=== PATIENT | male | born 1935 | race Native Hawaiian/Other Pacific Islander ===

== ENCOUNTER 2018-10-19 22:48 | Inpatient (IN) | payer MEDICARE ==
[2018-10-19 22:48] VITALS: BMI 26.1
[2018-10-20 00:01] LABS: BASO % 0.4 % (0.0-2.0); EOS % 0.4 % (0.0-4.0); HEMOGLOBIN 14.6 g/dL (12.0-18.0); LYMPH # 1.3 K/uL (1.0-4.3); LYMPH % 24.8 % (20.0-40.0); MEAN CELL VOLUME 93.1 fL (80.0-94.0); MEAN CORPUSCULAR HEMOGLOBIN 32.5 pg (27.0-31.0); MEAN CORPUSCULAR HGB CONC 34.9 g/dL (33.0-37.0); MEAN PLATELET VOLUME 8.5 fL (7.2-11.7); MONO # 0.4 K/uL (0.0-0.8); MONO % 7.6 % (0.0-10.0); NEUT # 3.6 K/uL (1.8-7.0); NEUT % 66.8 % (50.0-75.0); NRBC % 0.1 % (0.0-2.0); RBC 4.49 Mil/uL (4.40-5.90); WHITE BLOOD COUNT 5.3 K/uL (4.8-10.8)
[2018-10-20 00:08] LABS: INR 1.2; PROTHROMBIN TIME 12.7 SECONDS (9.7-12.2)
[2018-10-20 00:14] LABS: BLOOD UREA NITROGEN 42 mg/dL (9-20); CALCIUM 9.1 mg/dl (8.6-10.4); GFR NON-AFRICAN AMERICAN 36
[2018-10-20 00:15] LABS: ALB/GLOB RATIO 1.4 (1.0-2.1); ALBUMIN 4.5 g/dL (3.5-5.0); ALT/SGPT 96 U/L (21-72); AST/SGOT 141 U/L (17-59)
--- NOTE | 2018-10-20 00:16 | C.PDOC ---
History Of Present Illness 82 year old male is brought to the ED by family for evaluation of seizure-like activity noted prior to arrival. As per family, patient was sitting in a chair, stood up and became unresponsive, and fell back into the chair. Patient appeared to have a seizure-like episode that lasted a couple seconds before self - resolving. Patient currently offers no complaints. As per family, patient was recently discharged from another hospital with diagnosis of dizziness and an ear infection. He denies any symptoms prior to the episode, tongue bite, or urinary/bowel incontinence at this time. Time Seen by Provider: 10/19/18 23:10 Chief Complaint (Nursing): Seizure History Per: Patient, Family History/Exam Limitations: no limitations Recent Seizure Activity Began: Just Before Arrival Number Of Seizures: One Length Of Seizures (Duration): Seconds Past Medical History Reviewed: Historical Data, Nursing Documentation, Vital Signs Vital Signs: Last Vital Signs Temp 98.2 F 10/19/18 22:55 Pulse 75 10/19/18 23:34 Resp 16 10/19/18 23:34 BP 159/72 H 10/19/18 23:34 Pulse Ox 99 10/19/18 23:34 - Medical History PMH: Colonic Polyps, HTN, Hypothyroidism (H/O PAPILLARY CANCER) Denies: Fractures Surgical History: Endoscopy Family History: States: Unknown Family Hx - Social History Hx Alcohol Use: No Hx Substance Use: No - Immunization History Hx Tetanus Toxoid Vaccination: No Hx Influenza Vaccination: Yes Hx Pneumococcal Vaccination: Yes Review Of Systems Constitutional: Negative for: Fever, Chills ENT: Negative for: Other (tongue bite ) Cardiovascular: Negative for: Chest Pain, Palpitations Respiratory: Negative for: Cough, Shortness of Breath Genitourinary: Negative for: Incontinence Neurological: Positive for: Seizures Physical Exam - Physical Exam Appears: Non-toxic, No Acute Distress Skin: Normal Color, Warm, Dry Head: Atraumatic, Normacephalic Eye(s): bilateral: Normal Inspection Oral Mucosa: Moist Tongue: Normal Appearing, No Bite Neck: Normal ROM, Supple Chest: Symmetrical, No Deformity, No Tenderness Cardiovascular: Rhythm Regular, No Murmur Respiratory: Normal Breath Sounds, No Rales, No Rhonchi, No Wheezing Gastrointestinal/Abdominal: Soft, No Tenderness, No Guarding, No Rebound Extremity: Normal ROM, Capillary Refill (less than 2 seconds ) Neurological/Psych: Oriented x3, Normal Speech, Normal Cognition ED Course And Treatment - Laboratory Results Result Diagrams: 10/19/18 23:56 10/19/18 23:56 Lab Results: PT 12.7 SECONDS (9.7-12.2) H 10/19/18 23:56 INR 1.2 10/19/18 23:56 APTT 40 SECONDS (21-34) H 10/19/18 23:56 Total Bilirubin 1.3 mg/dL (0.2-1.3) 10/19/18 23:56 AST 141 U/L (17-59) H 10/19/18 23:56 ALT 96 U/L (21-72) H 10/19/18 23:56 Alkaline Phosphatase 45 U/L (38-126) 10/19/18 23:56 Total Protein 7.6 g/dL (6.3-8.3) 10/19/18 23:56 Albumin 4.5 g/dL (3.5-5.0) 10/19/18 23:56 Globulin 3.2 gm/dL (2.2-3.9) 10/19/18 23:56 Albumin/Globulin Ratio 1.4 (1.0-2.1) 10/19/18 23:56 ECG: Interpreted By Me, Viewed By Me ECG Rhythm: Sinus Rhythm Interpretation Of ECG: Normal Sinus Rhythm at rate 71bpm. Normal axis, LVH. Rate From EC O2 Sat by Pulse Oximetry: 99 (on RA) Pulse Ox Interpretation: Normal - CT Scan/US CT Head Other Rad Studies (CT/US): Read By Radiologist, Radiology Report Reviewed CT/US Interpretation: EXAM: CT Head without Intravenous Contrast. CLINICAL HISTORY: Dizziness, and seizure today. TECHNIQUE: Axial computed tomography images of the head/brain without intravenous contrast. 0.00 mGy-cm. CONTRAST: Without. COMPARISON: None provided. FINDINGS: BRAIN. There is mild periventricular deep and subcortical white matter hypodensity bilaterally compatible with mild microvascular ischemic disease. No evidence for acute intracranial hemorrhage. No midline shift or mass effect is evident. VENTRICLES: There is mild prominence of ventricles and sulci compatible with mild atrophy. ORBITS: The orbits are unremarkable. SINUSES AND MASTOIDS: The paranasal sinuses and mastoid air cells are clear. BONES: No fracture. MISCELLANEOUS: No CT evidence for acute territorial infarction is identified. IMPRESSION: 1. There is mild prominence of ventricles and sulci compatible with mild atrophy. 2. There is mild periventricular deep and subcortical white matter hypodensity bilaterally compatible with mild microvascular ischemic disease. 3. No CT evidence for acute intracranial abnormality. Medical Decision Making Medical Decision Making: Progress: Bloodwork, urinalysis, CXR, CT Head, and EKG ordered and reviewed. Spoke to Dr. Fagan. Workup reviewed. Patient to be admitted to his service. Disposition - Disposition Disposition: HOSPITALIZED Disposition Time: 00:45 Condition: STABLE Forms: Flitto (Uzbek) - Clinical Impression Clinical Impression: Syncope - Scribe Statement The provider has reviewed the documentation as recorded by the Scribe (Amna Donald) Provider Attestation: All medical record entries made by the Scribe were at my direction and personally dictated by me. I have reviewed the chart and agree that the record accurately reflects my personal performance of the history, physical exam, medical decision making, and the department course for this patient. I have also personally directed, reviewed, and agree with the discharge instructions and disposition.
[2018-10-20 00:52] LABS: URINE BACTERIA RARE (<OCC); URINE BILIRUBIN NEGATIVE (NEGATIVE); URINE BLOOD NEGATIVE (NEGATIVE); URINE CLARITY Clear (Clear); URINE COLOR Yellow (YELLOW); URINE GLUCOSE (UA) 1+ mg/dL (Normal); URINE LEUKOCYTE ESTERASE NEG Leu/uL (Negative); URINE PROTEIN 2+ mg/dL (NEGATIVE); URINE UROBILINOGEN NORMAL mg/dL (0.2-1.0)
[2018-10-20] MEDS ORDERED: Dextrose 50% SYRINGE Inj (50 ml) IV PRN (01:38)
[2018-10-20] MEDS ORDERED: Glucagon Recombinant 1 mg Inj IM PRN (01:38)
[2018-10-20] MEDS: Levothyroxine 150 MCG TAB PO SCH (06:41)
[2018-10-20] MEDS: (Novolog) Insulin Aspart, Recombinant 100 u/ml 10 ml vial SC SCH ×5 (08:32→21:11)
[2018-10-20 08:34] VITALS: RESP 20
[2018-10-20] MEDS ORDERED: MAGNESIUM OXIDE 200 MG PO SCH (10:00)
[2018-10-20] MEDS ORDERED: Pantoprazole 40 mg EC Tab PO SCH (10:00)
--- NOTE | 2018-10-20 10:17 | RAD ---
Date of service: 10/19/2018 HISTORY: syncope COMPARISON: Chest radiographs 01/20/2014. FINDINGS: LUNGS: Diminished inspiratory effort. No acute infiltrate bilaterally. PLEURA: No significant pleural effusion identified, no pneumothorax apparent. CARDIOVASCULAR: Calcific atherosclerotic changes are seen related to the thoracic aorta. Normal cardiac size. No pulmonary vascular congestion. OSSEOUS STRUCTURES: No significant abnormalities. VISUALIZED UPPER ABDOMEN: Normal. OTHER FINDINGS: None. IMPRESSION: No acute infiltrate bilaterally. Diminished inspiratory effort. No pulmonary vascular congestion evident.
[2018-10-20 10:28] LABS: ALB/GLOB RATIO 1.4 (1.0-2.1); ALBUMIN 3.9 g/dL (3.5-5.0); ALT/SGPT 100 U/L (21-72); AST/SGOT 88 U/L (17-59); BLOOD UREA NITROGEN 38 mg/dL (9-20); CALCIUM 9.4 mg/dl (8.6-10.4); GFR NON-AFRICAN AMERICAN 36
[2018-10-20] MEDS: Enoxaparin 40 mg Syringe SC SCH (10:32)
[2018-10-20 10:59] LABS: T3 1.08 nmol/L (1.49-2.60)
--- NOTE | 2018-10-20 12:24 | CT ---
Date of service: 10/19/2018 PROCEDURE: CT HEAD WITHOUT CONTRAST. HISTORY: syncope COMPARISON: None available. TECHNIQUE: Axial computed tomography images were obtained through the head/brain without intravenous contrast. Radiation dose: Total exam DLP = 1218.5 mGy-cm. This CT exam was performed using one or more of the following dose reduction techniques: Automated exposure control, adjustment of the mA and/or kV according to patient size, and/or use of iterative reconstruction technique. FINDINGS: HEMORRHAGE: No intracranial hemorrhage. BRAIN: The chávez-white matter differentiation is well preserved. There is no mass effect or definitive edema pattern appreciated including the cortex. There is proportional expansion of the ventriculosulcal and cisternal spaces however in a pattern most compatible with diffuse cerebral atrophy. No suspicious extra-axial fluid collection is identified in the midline brain anatomy appears grossly nonfocal as imaged. VENTRICLES: Unremarkable. No hydrocephalus. CALVARIUM: No fracture or destructive bony lesion appreciated throughout the skull base and calvarium. Atherosclerotic cavernous ICA calcifications are identified bilaterally. PARANASAL SINUSES: Unremarkable as visualized. No significant inflammatory changes. MASTOID AIR CELLS: Unremarkable as visualized. No inflammatory changes. OTHER FINDINGS: None. IMPRESSION: Limited age-related neuro degenerative changes without acute intracranial findings appreciable. Follow-up MRI or CT are available if clinically warranted. Concordant preliminary report from [facility], 10/20/2018, 12:21 a.m..
[2018-10-20] MEDS ORDERED: Iodixanol 320 mg/ml 150 ml Bottle IV ONE (13:11)
--- NOTE | 2018-10-20 13:20 | CP.PCM.CON ---
History of Present Illness - History of Present Illness History of Present Illness: CONSULTATION DICTATED WITNESSED SEIZURE LIKE ACTIVITIES WITH LOC EXAM : ASTASIA ABASALIS - THALAMIC DYSFUNCTION COMPLICATED WITH DIABETIC NEUROPATHY NEED ASA/PLAVIX FOR NOW WITH ACI OR ARB WITH STATIN DIABETIC CONTROL OOB WITH PT WILL DO MRI /EEG NO AED NOW OBTAIN MEDICAL RECORDS FROM [facility] Past Patient History - Past Medical History & Family History Past Medical History?: Yes - Past Social History Smoking Status: Former Smoker - CARDIAC Hx Hypertension: Yes - NEUROLOGICAL HX Cerebrovascular Accident: No - RENAL Other/Comment: BORDERLINE KIDNEY DYSFUNCTION - ENDOCRINE/METABOLIC Hx Hypothyroidism: Yes (H/O PAPILLARY CANCER) - HEMATOLOGICAL/ONCOLOGICAL Hx Blood Transfusions: No - MUSCULOSKELETAL/RHEUMATOLOGICAL Hx Fractures: No - GASTROINTESTINAL Hx Gastrointestinal Disorders: Yes Hx Hemorrhoids: Yes Hx Ulcer: Yes - PSYCHIATRIC Hx Substance Use: No - SURGICAL HISTORY Hx Surgeries: Yes Hx Thyroidectomy: Yes (TOTAL) - ANESTHESIA Hx Anesthesia: Yes Hx Anesthesia Reactions: No Hx Malignant Hyperthermia: No Meds Allergies/Adverse Reactions: Allergies Allergy/AdvReac Type Severity Reaction Status Date / Time sitagliptin phosphate Allergy Intermediate RASH Verified 10/19/18 23:03 [From Francisco] MICHELLE Allergy Intermediate RASH Uncoded 10/19/18 23:03 - Medications Medications: Current Medications Amlodipine Besylate (Norvasc) 10 mg PO DAILY [facility] Last Admin: 10/20/18 10:32 Dose: 10 mg Clopidogrel Bisulfate (Plavix) 75 mg PO DAILY [facility] Dextrose (Dextrose 50% Inj) 0 ml IV STAT PRN; Protocol PRN Reason: Hypoglycemia Protocol Dextrose (Glutose 15) 0 gm PO ONCE PRN; Protocol PRN Reason: Hypoglycemia Protocol Docusate Sodium (Colace) 100 mg PO BID PRN PRN Reason: Constipation Enoxaparin Sodium (Lovenox) 40 mg SC DAILY [facility] Last Admin: 10/20/18 10:32 Dose: 40 mg Famotidine (Pepcid) 20 mg PO DAILY [facility] Fenofibrate (Tricor) 145 mg PO DAILY [facility] Finasteride (Proscar) 5 mg PO DAILY [facility] Last Admin: 10/20/18 12:27 Dose: 5 mg Folic Acid (Folic Acid) 1 mg PO DAILY [facility] Last Admin: 10/20/18 10:32 Dose: 1 mg Glucagon (Glucagen Diagnostic Kit) 0 mg IM STAT PRN; Protocol PRN Reason: Hypoglycemia Protocol Home Med (Silodosin [Rapaflo]) 8 mg PO DAILY [facility] Dextrose (Dextrose 5% In Water 1000 Ml) 1,000 mls @ 0 mls/hr IV .Q0M PRN; Protocol PRN Reason: Hypoglycemia Protocol Insulin Aspart (Novolog) 0 unit SC ACHS [facility]; Protocol Last Admin: 10/20/18 12:26 Dose: 3 units Levothyroxine Sodium (Synthroid) 150 mcg PO DAILY@0630 [facility] Last Admin: 10/20/18 06:41 Dose: 150 mcg Losartan Potassium (Cozaar) 100 mg PO DAILY [facility] Last Admin: 10/20/18 10:32 Dose: 100 mg Magnesium Oxide (Magnesium Oxide) 200 mg PO DAILY [facility] Ondansetron HCl (Zofran Tab) 4 mg PO Q4 [facility] Last Admin: 10/20/18 12:27 Dose: 4 mg Results - Vital Signs Recent Vital Signs: Last Vital Signs Temp 97.9 F 10/20/18 08:33 Pulse 70 10/20/18 08:33 Resp 20 10/20/18 08:33 BP 153/67 H 10/20/18 08:33 Pulse Ox 98 10/20/18 08:33 - Labs Result Diagrams: 10/19/18 23:56 10/20/18 08:00 Labs: Laboratory Results - last 24 hr 10/19/18 10/19/18 10/19/18 22:57 23:56 23:56 WBC 5.3 RBC 4.49 Hgb 14.6 Hct 41.8 MCV 93.1 MCH 32.5 H MCHC 34.9 RDW 13.0 Plt Count 148 MPV 8.5 Neut % (Auto) 66.8 Lymph % (Auto) 24.8 [place] % (Auto) 7.6 Eos % (Auto) 0.4 Baso % (Auto) 0.4 Neut # (Auto) 3.6 Lymph # (Auto) 1.3 [place] # (Auto) 0.4 Eos # (Auto) 0.0 Baso # (Auto) 0.0 PT 12.7 H INR 1.2 APTT 40 H D-Dimer, Quantitative Sodium Potassium Chloride Carbon Dioxide Anion Gap BUN Creatinine Est GFR ( Amer) Est GFR (Non-Af Amer) POC Glucose (mg/dL) 154 H Random Glucose Calcium Phosphorus Magnesium Total Bilirubin AST ALT Alkaline Phosphatase Troponin I Total Protein Albumin Globulin Albumin/Globulin Ratio Total T3 TSH 3rd Generation Prolactin Urine Color Urine Clarity Urine pH Ur Specific [place] Urine Protein Urine Glucose (UA) Urine Ketones Urine Blood Urine Nitrate Urine Bilirubin Urine Urobilinogen Ur Leukocyte Esterase Urine WBC (Auto) Urine RBC (Auto) Urine Bacteria 10/19/18 10/20/18 10/20/18 23:56 00:46 02:10 WBC RBC Hgb Hct MCV MCH MCHC RDW Plt Count MPV Neut % (Auto) Lymph % (Auto) [place] % (Auto) Eos % (Auto) Baso % (Auto) Neut # (Auto) Lymph # (Auto) [place] # (Auto) Eos # (Auto) Baso # (Auto) PT INR APTT D-Dimer, Quantitative Sodium 131 L Potassium 5.4 H Chloride 99 Carbon Dioxide 22 Anion Gap 16 BUN 42 H Creatinine 1.8 H Est GFR ( Amer) 44 Est GFR (Non-Af Amer) 36 POC Glucose (mg/dL) 178 H Random Glucose 153 H Calcium 9.1 Phosphorus 5.1 H Magnesium 2.1 Total Bilirubin 1.3 AST 141 H ALT 96 H Alkaline Phosphatase 45 Troponin I < 0.0120 Total Protein 7.6 Albumin 4.5 Globulin 3.2 Albumin/Globulin Ratio 1.4 Total T3 1.10 L TSH 3rd Generation 0.25 L Prolactin Urine Color Yellow Urine Clarity Clear Urine pH 6.0 Ur Specific [place] 1.013 Urine Protein 2+ H Urine Glucose (UA) 1+ H Urine Ketones Negative Urine Blood Negative Urine Nitrate Negative Urine Bilirubin Negative Urine Urobilinogen Normal Ur Leukocyte Esterase Neg Urine WBC (Auto) 1 Urine RBC (Auto) < 1 Urine Bacteria Rare 10/20/18 10/20/18 10/20/18 06:21 08:00 08:03 WBC RBC Hgb Hct MCV MCH MCHC RDW Plt Count MPV Neut % (Auto) Lymph % (Auto) [place] % (Auto) Eos % (Auto) Baso % (Auto) Neut # (Auto) Lymph # (Auto) [place] # (Auto) Eos # (Auto) Baso # (Auto) PT INR APTT D-Dimer, Quantitative 1980 H Sodium 133 Potassium 3.7 Chloride 100 Carbon Dioxide 25 Anion Gap 12 BUN 38 H Creatinine 1.8 H Est GFR ( Amer) 44 Est GFR (Non-Af Amer) 36 POC Glucose (mg/dL) 205 H Random Glucose 193 H D Calcium 9.4 Phosphorus 4.4 Magnesium 2.1 Total Bilirubin 0.6 AST 88 H D ALT 100 H Alkaline Phosphatase 58 Troponin I < 0.0120 Total Protein 6.7 Albumin 3.9 Globulin 2.8 Albumin/Globulin Ratio 1.4 Total T3 1.08 L TSH 3rd Generation 0.23 L Prolactin Urine Color Urine Clarity Urine pH Ur Specific [place] Urine Protein Urine Glucose (UA) Urine Ketones Urine Blood Urine Nitrate Urine Bilirubin Urine Urobilinogen Ur Leukocyte Esterase Urine WBC (Auto) Urine RBC (Auto) Urine Bacteria 10/20/18 10/20/18 08:03 10:58 WBC RBC Hgb Hct MCV MCH MCHC RDW Plt Count MPV Neut % (Auto) Lymph % (Auto) [place] % (Auto) Eos % (Auto) Baso % (Auto) Neut # (Auto) Lymph # (Auto) [place] # (Auto) Eos # (Auto) Baso # (Auto) PT INR APTT D-Dimer, Quantitative Sodium Potassium Chloride Carbon Dioxide Anion Gap BUN Creatinine Est GFR ( Amer) Est GFR (Non-Af Amer) POC Glucose (mg/dL) 244 H Random Glucose Calcium Phosphorus Magnesium Total Bilirubin AST ALT Alkaline Phosphatase Troponin I Total Protein Albumin Globulin Albumin/Globulin Ratio Total T3 TSH 3rd Generation Prolactin 28.8 H Urine Color Urine Clarity Urine pH Ur Specific [place] Urine Protein Urine Glucose (UA) Urine Ketones Urine Blood Urine Nitrate Urine Bilirubin Urine Urobilinogen Ur Leukocyte Esterase Urine WBC (Auto) Urine RBC (Auto) Urine Bacteria
[2018-10-20 14:43] LABS: FREE T4 2.1 ng/dL (0.78-2.19)
[2018-10-20 15:19] LABS: FOLATE > 20.0 ng/mL
--- NOTE | 2018-10-20 15:24 | CP.PCM.HP ---
History of Present Illness - History of Present Illness History of Present Illness: 82 years old male was witnessed yesterday to pass out at home followed by seizures for a few seconds. Patient regained consciousness spontaneously. He denies any chest pain, any palpitation. He has been complaining of lightheadedness for the past few weeks, was hospitalized at [facility] a few days ago and a head MRI was normal. Patient is known to have an IDDM, a CKD, a hypertension, a hypothyroidism, a glaucoma, a BPH, a COPD. On admission, his serum prolactin level is slight elevated and his D-Dimer was 1,900. Patient denies any chest pain, any calf pain, but complaints of SOB on minimal exertion lately. Present on Admission - Present on Admission Any Indicators Present on Admission: No Review of Systems - Cardiovascular Cardiovascular: Dyspnea on Exertion, Syncope - Respiratory Respiratory: Dyspnea on Exertion - Neurological Neurological: Convulsions, Dizziness, Syncope Past Patient History - Infectious Disease Hx of Infectious Diseases: None - Tetanus Immunizations Tetanus Immunization: Unknown - Past Medical History & Family History Past Medical History?: Yes - Past Social History Smoking Status: Former Smoker Alcohol: None Drugs: Denies Home Situation {Lives}: With Family Domestic Violence: Negative - CARDIAC Hx Heart Murmur: Yes Hx Hypertension: Yes - PULMONARY Hx Chronic Obstructive Pulmonary Disease (COPD): Yes - NEUROLOGICAL HX Cerebrovascular Accident: No Hx Seizures: Yes Hx Syncope: Yes - HEENT Hx Glaucoma: Yes Hx Macular Degeneration: Yes - RENAL Hx Chronic Kidney Disease: Yes Other/Comment: BORDERLINE KIDNEY DYSFUNCTION - ENDOCRINE/METABOLIC Hx Diabetes Mellitus Type 1: Yes Hx Hypothyroidism: Yes (H/O PAPILLARY CANCER) - HEMATOLOGICAL/ONCOLOGICAL Hx Blood Transfusions: No - MUSCULOSKELETAL/RHEUMATOLOGICAL Hx Fractures: No - GASTROINTESTINAL Hx Gastrointestinal Disorders: Yes Hx Hemorrhoids: Yes Hx Ulcer: Yes - PSYCHIATRIC Hx Substance Use: No - SURGICAL HISTORY Hx Surgeries: Yes Hx Thyroidectomy: Yes (TOTAL) - ANESTHESIA Hx Anesthesia: Yes Hx Anesthesia Reactions: No Hx Malignant Hyperthermia: No Meds Allergies/Adverse Reactions: Allergies Allergy/AdvReac Type Severity Reaction Status Date / Time sitagliptin phosphate Allergy Intermediate RASH Verified 10/19/18 23:03 [From Francisco] IMCHELLE Allergy Intermediate RASH Uncoded 10/19/18 23:03 Physical Exam - Constitutional Appears: Well - Head Exam Head Exam: NORMAL INSPECTION - Eye Exam Eye Exam: Normal appearance Pupil Exam: NORMAL ACCOMODATION - ENT Exam ENT Exam: Normal Exam - Neck Exam Neck exam: Positive for: Normal Inspection - Respiratory Exam Respiratory Exam: Clear to Auscultation Bilateral, NORMAL BREATHING PATTERN - Cardiovascular Exam Cardiovascular Exam: REGULAR RHYTHM, Systolic Murmur - GI/Abdominal Exam GI & Abdominal Exam: Normal Bowel Sounds, Soft - Rectal Exam Rectal Exam: Deferred - Exam Exam: NORMAL INSPECTION - Extremities Exam Extremities exam: Positive for: normal inspection - Back Exam Back exam: NORMAL INSPECTION - Neurological Exam Neurological exam: Alert, Normal Gait, Oriented x3 - Psychiatric Exam Psychiatric exam: Anxious - Skin Skin Exam: Dry, Intact, Normal Color, Warm Results - Vital Signs Recent Vital Signs: Last Vital Signs Temp 97.9 F 10/20/18 08:33 Pulse 70 10/20/18 08:33 Resp 20 10/20/18 08:33 BP 153/67 H 10/20/18 08:33 Pulse Ox 98 10/20/18 08:33 - Labs Result Diagrams: 10/19/18 23:56 10/20/18 08:00 Labs: Laboratory Results - last 24 hr 10/19/18 10/19/18 10/19/18 22:57 23:56 23:56 WBC 5.3 RBC 4.49 Hgb 14.6 Hct 41.8 MCV 93.1 MCH 32.5 H MCHC 34.9 RDW 13.0 Plt Count 148 MPV 8.5 Neut % (Auto) 66.8 Lymph % (Auto) 24.8 [place] % (Auto) 7.6 Eos % (Auto) 0.4 Baso % (Auto) 0.4 Neut # (Auto) 3.6 Lymph # (Auto) 1.3 [place] # (Auto) 0.4 Eos # (Auto) 0.0 Baso # (Auto) 0.0 PT 12.7 H INR 1.2 APTT 40 H D-Dimer, Quantitative Sodium Potassium Chloride Carbon Dioxide Anion Gap BUN Creatinine Est GFR ( Amer) Est GFR (Non-Af Amer) POC Glucose (mg/dL) 154 H Random Glucose Calcium Phosphorus Magnesium Total Bilirubin AST ALT Alkaline Phosphatase Troponin I Total Protein Albumin Globulin Albumin/Globulin Ratio Free T4 Total T3 TSH 3rd Generation Prolactin Urine Color Urine Clarity Urine pH Ur Specific [place] Urine Protein Urine Glucose (UA) Urine Ketones Urine Blood Urine Nitrate Urine Bilirubin Urine Urobilinogen Ur Leukocyte Esterase Urine WBC (Auto) Urine RBC (Auto) Urine Bacteria 10/19/18 10/20/18 10/20/18 23:56 00:46 02:10 WBC RBC Hgb Hct MCV MCH MCHC RDW Plt Count MPV Neut % (Auto) Lymph % (Auto) [place] % (Auto) Eos % (Auto) Baso % (Auto) Neut # (Auto) Lymph # (Auto) [place] # (Auto) Eos # (Auto) Baso # (Auto) PT INR APTT D-Dimer, Quantitative Sodium 131 L Potassium 5.4 H Chloride 99 Carbon Dioxide 22 Anion Gap 16 BUN 42 H Creatinine 1.8 H Est GFR ( Amer) 44 Est GFR (Non-Af Amer) 36 POC Glucose (mg/dL) 178 H Random Glucose 153 H Calcium 9.1 Phosphorus 5.1 H Magnesium 2.1 Total Bilirubin 1.3 AST 141 H ALT 96 H Alkaline Phosphatase 45 Troponin I < 0.0120 Total Protein 7.6 Albumin 4.5 Globulin 3.2 Albumin/Globulin Ratio 1.4 Free T4 Total T3 1.10 L TSH 3rd Generation 0.25 L Prolactin Urine Color Yellow Urine Clarity Clear Urine pH 6.0 Ur Specific [place] 1.013 Urine Protein 2+ H Urine Glucose (UA) 1+ H Urine Ketones Negative Urine Blood Negative Urine Nitrate Negative Urine Bilirubin Negative Urine Urobilinogen Normal Ur Leukocyte Esterase Neg Urine WBC (Auto) 1 Urine RBC (Auto) < 1 Urine Bacteria Rare 10/20/18 10/20/18 10/20/18 06:21 08:00 08:03 WBC RBC Hgb Hct MCV MCH MCHC RDW Plt Count MPV Neut % (Auto) Lymph % (Auto) [place] % (Auto) Eos % (Auto) Baso % (Auto) Neut # (Auto) Lymph # (Auto) [place] # (Auto) Eos # (Auto) Baso # (Auto) PT INR APTT D-Dimer, Quantitative 1980 H Sodium 133 Potassium 3.7 Chloride 100 Carbon Dioxide 25 Anion Gap 12 BUN 38 H Creatinine 1.8 H Est GFR ( Amer) 44 Est GFR (Non-Af Amer) 36 POC Glucose (mg/dL) 205 H Random Glucose 193 H D Calcium 9.4 Phosphorus 4.4 Magnesium 2.1 Total Bilirubin 0.6 AST 88 H D ALT 100 H Alkaline Phosphatase 58 Troponin I < 0.0120 Total Protein 6.7 Albumin 3.9 Globulin 2.8 Albumin/Globulin Ratio 1.4 Free T4 Total T3 1.08 L TSH 3rd Generation 0.23 L Prolactin Urine Color Urine Clarity Urine pH Ur Specific [place] Urine Protein Urine Glucose (UA) Urine Ketones Urine Blood Urine Nitrate Urine Bilirubin Urine Urobilinogen Ur Leukocyte Esterase Urine WBC (Auto) Urine RBC (Auto) Urine Bacteria 10/20/18 10/20/18 10/20/18 08:03 10:58 13:30 WBC RBC Hgb Hct MCV MCH MCHC RDW Plt Count MPV Neut % (Auto) Lymph % (Auto) [place] % (Auto) Eos % (Auto) Baso % (Auto) Neut # (Auto) Lymph # (Auto) [place] # (Auto) Eos # (Auto) Baso # (Auto) PT INR APTT D-Dimer, Quantitative Sodium Potassium Chloride Carbon Dioxide Anion Gap BUN Creatinine Est GFR ( Amer) Est GFR (Non-Af Amer) POC Glucose (mg/dL) 244 H Random Glucose Calcium Phosphorus Magnesium Total Bilirubin AST ALT Alkaline Phosphatase Troponin I Total Protein Albumin Globulin Albumin/Globulin Ratio Free T4 2.10 Total T3 TSH 3rd Generation Prolactin 28.8 H Urine Color Urine Clarity Urine pH Ur Specific [place] Urine Protein Urine Glucose (UA) Urine Ketones Urine Blood Urine Nitrate Urine Bilirubin Urine Urobilinogen Ur Leukocyte Esterase Urine WBC (Auto) Urine RBC (Auto) Urine Bacteria Assessment & Plan (1) Syncope Assessment and Plan: Etiology to be determined. Status: Acute (2) Seizures Assessment and Plan: Neurological evaluation. EEG, Carotid doppler, echocardiogram, review head MRI from [facility]. Status: Acute (3) Elevated d-dimer Assessment and Plan: VQ scan of the lungs. Status: Acute (4) Uncontrolled insulin dependent diabetes mellitus Status: Acute (5) CKD (chronic kidney disease) Assessment and Plan: Multi Disciplined Language Analyst evaluation. Status: Acute
--- NOTE | 2018-10-20 15:36 | CP.PCM.CON ---
History of Present Illness - History of Present Illness History of Present Illness: 82 year old male is brought to the ED by family for evaluation of seizure-like activity noted prior to arrival. As per family, patient was sitting in a chair, stood up and became unresponsive, and fell back into the chair. Patient appeared to have a seizure-like episode that lasted a couple seconds before self - resolving. Patient currently offers no complaints. As per family, patient was recently discharged from another hospital with diagnosis of dizziness and an ear infection. He denies any symptoms prior to the episode, tongue bite, or urinary/bowel incontinence at this time. MRI head reported as negative [id number] PMH: HTN CKD 3 hypothyroidism- papillary CA DM type 2 - Medical History PMH: Colonic Polyps, HTN, Hypothyroidism (H/O PAPILLARY CANCER) Denies: Fractures Surgical History: Endoscopy Family History: States: Unknown Family Hx; no CKD - Social History Hx Alcohol Use: No Hx Substance Use: No - Immunization History Hx Tetanus Toxoid Vaccination: No Hx Influenza Vaccination: Yes Hx Pneumococcal Vaccination: Yes Review Of Systems Constitutional: Negative for: Fever, Chills ENT: Negative for: Other (tongue bite ) Cardiovascular: Negative for: Chest Pain, Palpitations Respiratory: Negative for: Cough, Shortness of Breath Genitourinary: Negative for: Incontinence Neurological: Positive for: Seizures Review of Systems - Constitutional Constitutional: Fatigue, Weakness - EENT Eyes: Blurred Vision Ears: Disequilibrium, Dizziness - Cardiovascular Cardiovascular: absent: As Per HPI, Acrocyanosis, Chest Pain, Chest Pain at Rest, Chest Pain with Activity, Claudication, Diaphoresis, Dyspnea, Dyspnea on Exertion, Edema, Irregular Heart Rhythm, Pain Radiating to Arm/Neck/Jaw, Leg Edema, Leg Ulcers, Lightheadedness, Orthopnea, Palpitations, Paroxysmal Nocturnal Dyspnea, Pedal Edema, Radiating Pain, Rapid Heart Rate, Slow Heart Rate, Syncope, Other - Respiratory Respiratory: absent: As Per HPI, Cough, Dyspnea, Hemoptysis, Dyspnea on Exertion, Wheezing, Snoring, Stridor, Pain on Inspiration, Chest Congestion, Excessive Mucous Production, Change in Mucous Color, Pain with Coughing, Other - Gastrointestinal Gastrointestinal: absent: As Per HPI, Abdominal Pain, Belching, Bloating, Change in Bowel Habits, Change in Stool Character, Coffee Ground Emesis, Constipation, Cramping, Diarrhea, Dyspepsia, Dysphagia, Early Satiety, Excessive Flatus, Fecal Incontinence, Heartburn, Hematemesis, Hematochezia, Loose Stools, Melena, Nausea, Odynophagia, Temesmus, Vomiting, Other - Genitourinary Genitourinary: absent: As Per HPI, Change in Urinary Stream, Difficulty Urinating, Dysuria, Flank Pain, Hematuria, Pyuria, Nocturia, Urinary Incontinence, Urinary Frequency, Urinary Hesitance, Urinary Urgency, Voiding Freq/Small Amts, Freq UTI, Hx Renal/Bladder Calculi, Hx /Renal Surgery, Bladder Distension, Other - Musculoskeletal Musculoskeletal: Muscle Cramps, Muscle Weakness, Myalgias - Integumentary Integumentary: absent: As Per HPI, Acne, Alopecia, Bleeding Lesions, Change in Hair, Change in Nails, Change in Pigmentation, Changing Lesions, Dry Skin, Erythema, Furuncle, Hirsutism, Lesions, New Lesions, Non-Healing Lesions, Photosensitivity, Pruritus, Rash, Skin Pain, Skin Ulcer, Sores, Striae, Swelling, Unusual Bruising, Wounds, Jaundice, Other - Neurological Neurological: Dizziness, Weakness Past Patient History - Infectious Disease Hx of Infectious Diseases: None - Tetanus Immunizations Tetanus Immunization: Unknown - Past Medical History & Family History Past Medical History?: Yes Past Family History: Reviewed and not pertinent - Past Social History Smoking Status: Former Smoker Chewing Tobacco Use: No Cigar Use: No Alcohol: None Drugs: Denies Home Situation {Lives}: With Family Domestic Violence: Negative - CARDIAC Hx Heart Murmur: Yes Hx Hypertension: Yes - PULMONARY Hx Chronic Obstructive Pulmonary Disease (COPD): Yes - NEUROLOGICAL HX Cerebrovascular Accident: No Hx Seizures: Yes Hx Syncope: Yes - HEENT Hx Glaucoma: Yes Hx Macular Degeneration: Yes - RENAL Hx Chronic Kidney Disease: Yes Other/Comment: BORDERLINE KIDNEY DYSFUNCTION - ENDOCRINE/METABOLIC Hx Diabetes Mellitus Type 1: Yes Hx Hypothyroidism: Yes (H/O PAPILLARY CANCER) - HEMATOLOGICAL/ONCOLOGICAL Hx Blood Transfusions: No - MUSCULOSKELETAL/RHEUMATOLOGICAL Hx Fractures: No - GASTROINTESTINAL Hx Gastrointestinal Disorders: Yes Hx Hemorrhoids: Yes Hx Ulcer: Yes - PSYCHIATRIC Hx Substance Use: No - SURGICAL HISTORY Hx Surgeries: Yes Hx Thyroidectomy: Yes (TOTAL) - ANESTHESIA Hx Anesthesia: Yes Hx Anesthesia Reactions: No Hx Malignant Hyperthermia: No Meds Allergies/Adverse Reactions: Allergies Allergy/AdvReac Type Severity Reaction Status Date / Time sitagliptin phosphate Allergy Intermediate RASH Verified 10/19/18 23:03 [From Francisco] BYETTA Allergy Intermediate RASH Uncoded 10/19/18 23:03 - Medications Medications: Current Medications Amlodipine Besylate (Norvasc) 10 mg PO DAILY [facility] Last Admin: 10/20/18 10:32 Dose: 10 mg Clopidogrel Bisulfate (Plavix) 75 mg PO DAILY [facility] Last Admin: 10/20/18 13:23 Dose: 75 mg Dextrose (Dextrose 50% Inj) 0 ml IV STAT PRN; Protocol PRN Reason: Hypoglycemia Protocol Dextrose (Glutose 15) 0 gm PO ONCE PRN; Protocol PRN Reason: Hypoglycemia Protocol Docusate Sodium (Colace) 100 mg PO BID PRN PRN Reason: Constipation Enoxaparin Sodium (Lovenox) 40 mg SC DAILY [facility] Last Admin: 10/20/18 10:32 Dose: 40 mg Famotidine (Pepcid) 20 mg PO DAILY [facility] Fenofibrate (Tricor) 145 mg PO DAILY [facility] Finasteride (Proscar) 5 mg PO DAILY [facility] Last Admin: 10/20/18 12:27 Dose: 5 mg Folic Acid (Folic Acid) 1 mg PO DAILY [facility] Last Admin: 10/20/18 10:32 Dose: 1 mg Glucagon (Glucagen Diagnostic Kit) 0 mg IM STAT PRN; Protocol PRN Reason: Hypoglycemia Protocol Home Med (Silodosin [Rapaflo]) 8 mg PO DAILY [facility] Dextrose (Dextrose 5% In Water 1000 Ml) 1,000 mls @ 0 mls/hr IV .Q0M PRN; Protocol PRN Reason: Hypoglycemia Protocol Insulin Aspart (Novolog) 0 unit SC ACHS [facility]; Protocol Last Admin: 10/20/18 12:26 Dose: 3 units Levothyroxine Sodium (Synthroid) 150 mcg PO DAILY@0630 [facility] Last Admin: 10/20/18 06:41 Dose: 150 mcg Losartan Potassium (Cozaar) 100 mg PO DAILY [facility] Last Admin: 10/20/18 10:32 Dose: 100 mg Magnesium Oxide (Magnesium Oxide) 200 mg PO DAILY [facility] Ondansetron HCl (Zofran Tab) 4 mg PO Q4 [facility] Last Admin: 10/20/18 12:27 Dose: 4 mg Physical Exam - Constitutional Appears: No Acute Distress, Chronically Ill - Head Exam Head Exam: ATRAUMATIC, NORMAL INSPECTION - Eye Exam Eye Exam: EOMI, Normal appearance - Neck Exam Neck exam: Positive for: Normal Inspection. Negative for: Tenderness - Respiratory Exam Respiratory Exam: Clear to Auscultation Bilateral, NORMAL BREATHING PATTERN - Cardiovascular Exam Cardiovascular Exam: REGULAR RHYTHM, +S1 - GI/Abdominal Exam GI & Abdominal Exam: Soft. absent: Tenderness - Extremities Exam Extremities exam: Positive for: normal inspection. Negative for: tenderness - Neurological Exam Neurological exam: Alert, CN II-XII Intact - Skin Skin Exam: Dry, Warm Results - Vital Signs Recent Vital Signs: Last Vital Signs Temp 97.9 F 10/20/18 08:33 Pulse 70 10/20/18 08:33 Resp 20 10/20/18 08:33 BP 153/67 H 10/20/18 08:33 Pulse Ox 98 10/20/18 08:33 - Labs Result Diagrams: 10/19/18 23:56 10/20/18 08:00 Labs: Laboratory Results - last 24 hr 10/19/18 10/19/18 10/19/18 22:57 23:56 23:56 WBC 5.3 RBC 4.49 Hgb 14.6 Hct 41.8 MCV 93.1 MCH 32.5 H MCHC 34.9 RDW 13.0 Plt Count 148 MPV 8.5 Neut % (Auto) 66.8 Lymph % (Auto) 24.8 [place] % (Auto) 7.6 Eos % (Auto) 0.4 Baso % (Auto) 0.4 Neut # (Auto) 3.6 Lymph # (Auto) 1.3 [place] # (Auto) 0.4 Eos # (Auto) 0.0 Baso # (Auto) 0.0 PT 12.7 H INR 1.2 APTT 40 H D-Dimer, Quantitative Sodium Potassium Chloride Carbon Dioxide Anion Gap BUN Creatinine Est GFR ( Amer) Est GFR (Non-Af Amer) POC Glucose (mg/dL) 154 H Random Glucose Calcium Phosphorus Magnesium Total Bilirubin AST ALT Alkaline Phosphatase Troponin I Total Protein Albumin Globulin Albumin/Globulin Ratio Vitamin B12 Folate Free T4 Total T3 TSH 3rd Generation Prolactin Urine Color Urine Clarity Urine pH Ur Specific [place] Urine Protein Urine Glucose (UA) Urine Ketones Urine Blood Urine Nitrate Urine Bilirubin Urine Urobilinogen Ur Leukocyte Esterase Urine WBC (Auto) Urine RBC (Auto) Urine Bacteria 10/19/18 10/20/18 10/20/18 23:56 00:46 02:10 WBC RBC Hgb Hct MCV MCH MCHC RDW Plt Count MPV Neut % (Auto) Lymph % (Auto) [place] % (Auto) Eos % (Auto) Baso % (Auto) Neut # (Auto) Lymph # (Auto) [place] # (Auto) Eos # (Auto) Baso # (Auto) PT INR APTT D-Dimer, Quantitative Sodium 131 L Potassium 5.4 H Chloride 99 Carbon Dioxide 22 Anion Gap 16 BUN 42 H Creatinine 1.8 H Est GFR ( Amer) 44 Est GFR (Non-Af Amer) 36 POC Glucose (mg/dL) 178 H Random Glucose 153 H Calcium 9.1 Phosphorus 5.1 H Magnesium 2.1 Total Bilirubin 1.3 AST 141 H ALT 96 H Alkaline Phosphatase 45 Troponin I < 0.0120 Total Protein 7.6 Albumin 4.5 Globulin 3.2 Albumin/Globulin Ratio 1.4 Vitamin B12 Folate Free T4 Total T3 1.10 L TSH 3rd Generation 0.25 L Prolactin Urine Color Yellow Urine Clarity Clear Urine pH 6.0 Ur Specific [place] 1.013 Urine Protein 2+ H Urine Glucose (UA) 1+ H Urine Ketones Negative Urine Blood Negative Urine Nitrate Negative Urine Bilirubin Negative Urine Urobilinogen Normal Ur Leukocyte Esterase Neg Urine WBC (Auto) 1 Urine RBC (Auto) < 1 Urine Bacteria Rare 10/20/18 10/20/18 10/20/18 06:21 08:00 08:03 WBC RBC Hgb Hct MCV MCH MCHC RDW Plt Count MPV Neut % (Auto) Lymph % (Auto) [place] % (Auto) Eos % (Auto) Baso % (Auto) Neut # (Auto) Lymph # (Auto) [place] # (Auto) Eos # (Auto) Baso # (Auto) PT INR APTT D-Dimer, Quantitative 1980 H Sodium 133 Potassium 3.7 Chloride 100 Carbon Dioxide 25 Anion Gap 12 BUN 38 H Creatinine 1.8 H Est GFR ( Amer) 44 Est GFR (Non-Af Amer) 36 POC Glucose (mg/dL) 205 H Random Glucose 193 H D Calcium 9.4 Phosphorus 4.4 Magnesium 2.1 Total Bilirubin 0.6 AST 88 H D ALT 100 H Alkaline Phosphatase 58 Troponin I < 0.0120 Total Protein 6.7 Albumin 3.9 Globulin 2.8 Albumin/Globulin Ratio 1.4 Vitamin B12 Folate Free T4 Total T3 1.08 L TSH 3rd Generation 0.23 L Prolactin Urine Color Urine Clarity Urine pH Ur Specific [place] Urine Protein Urine Glucose (UA) Urine Ketones Urine Blood Urine Nitrate Urine Bilirubin Urine Urobilinogen Ur Leukocyte Esterase Urine WBC (Auto) Urine RBC (Auto) Urine Bacteria 10/20/18 10/20/18 10/20/18 08:03 10:23 10:58 WBC RBC Hgb Hct MCV MCH MCHC RDW Plt Count MPV Neut % (Auto) Lymph % (Auto) [place] % (Auto) Eos % (Auto) Baso % (Auto) Neut # (Auto) Lymph # (Auto) [place] # (Auto) Eos # (Auto) Baso # (Auto) PT INR APTT D-Dimer, Quantitative Sodium Potassium Chloride Carbon Dioxide Anion Gap BUN Creatinine Est GFR ( Amer) Est GFR (Non-Af Amer) POC Glucose (mg/dL) 244 H Random Glucose Calcium Phosphorus Magnesium Total Bilirubin AST ALT Alkaline Phosphatase Troponin I Total Protein Albumin Globulin Albumin/Globulin Ratio Vitamin B12 804 Folate > 20.0 Free T4 Total T3 TSH 3rd Generation Prolactin 28.8 H Urine Color Urine Clarity Urine pH Ur Specific [place] Urine Protein Urine Glucose (UA) Urine Ketones Urine Blood Urine Nitrate Urine Bilirubin Urine Urobilinogen Ur Leukocyte Esterase Urine WBC (Auto) Urine RBC (Auto) Urine Bacteria 10/20/18 13:30 WBC RBC Hgb Hct MCV MCH MCHC RDW Plt Count MPV Neut % (Auto) Lymph % (Auto) [place] % (Auto) Eos % (Auto) Baso % (Auto) Neut # (Auto) Lymph # (Auto) [place] # (Auto) Eos # (Auto) Baso # (Auto) PT INR APTT D-Dimer, Quantitative Sodium Potassium Chloride Carbon Dioxide Anion Gap BUN Creatinine Est GFR ( Amer) Est GFR (Non-Af Amer) POC Glucose (mg/dL) Random Glucose Calcium Phosphorus Magnesium Total Bilirubin AST ALT Alkaline Phosphatase Troponin I Total Protein Albumin Globulin Albumin/Globulin Ratio Vitamin B12 Folate Free T4 2.10 Total T3 TSH 3rd Generation Prolactin Urine Color Urine Clarity Urine pH Ur Specific [place] Urine Protein Urine Glucose (UA) Urine Ketones Urine Blood Urine Nitrate Urine Bilirubin Urine Urobilinogen Ur Leukocyte Esterase Urine WBC (Auto) Urine RBC (Auto) Urine Bacteria Assessment & Plan - Assessment and Plan (Free Text) Assessment: r/o seizures HTN controlled CKD 3 high D-dimer - evaluate for PE proteinuria hyponatremia- mild Plan: increase BP control V/Q scan as per cardio neuro eval follow serial chemistries
[2018-10-20] MEDS: (Lantus) Insulin Glargine, Recombinant SC SCH (21:38)
[2018-10-21] MEDS: Levothyroxine 150 MCG TAB PO SCH (06:36)
--- NOTE | 2018-10-21 07:52 | CON ---
DATE: 10/20/2018 ATTENDING PHYSICIAN: Cory Fagan MD LOCATION: The patient's room number is 555. REASON FOR CONSULTATION: Witnessed seizures. CHIEF COMPLAINT: The patient was brought into [facility] following witnessed seizure-like activities and loss of consciousness at home. From neurological point of view, I was called in to evaluate him for further management. 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 On Sunday, while he was in the kitchen, had abrupt onset of lightheadedness associating with inability to walk by himself. He was trying to hold the wall. The symptoms persisted that he decided to go to a local hospital at [facility]. There, he was kept for 4 days, had all stroke workup, all workup was negative, and he was advised to be on aspirin and Plavix for stroke prophylaxis. Following discharge yesterday, while he was at home, he had witnessed tremor like activities of the whole body when he was trying to get up from the chair, following that he fell backward in the chair and lost his consciousness for about few seconds as per the patient. This episode is not associating with bowel and bladder incontinence or bitten tongue. No similar episodes happened in the past. No aura, no post event focal weakness or change in mental status. PAST MEDICAL HISTORY: Hypertension, [id number] diabetes mellitus, dyslipidemia, gastritis, and hypothyroidism. PERSONAL HISTORY: Denies smoking or alcohol use. ALLERGIES: NO KNOWN ALLERGIES. REVIEW OF SYSTEMS: Twelve-point system being reviewed. From neuro, seizure-like activities. MEDICATION: Zofran, Tricor, Synthroid, Plavix, Pepcid, insulin, Norvasc, magnesium oxide, Lovenox, folic acid, Cozaar and Colace. PHYSICAL EXAMINATION: VITAL SIGNS: Blood pressure 153/67, mean artery pressure of 95, respiratory rate 18, temperature 97.9 with a pulse rate of 70. NECK: Supple. No carotid bruits. HEART: Sounds regular. CHEST: Fair air entry. EXTREMITIES: No edema in legs. NEUROLOGIC: Mental status examination: He is awake, alert and oriented to person, place and time. Speech is clear. Naming, repetition, fluency, comprehension all within normal. Cranial nerve examination: Visual field intact. Pupils reactive to light. Extraocular movement decreased in all direction including vertical gaze. No facial sensory deficit. No facial asymmetry. Hearing is normal. Tongue is midline. Good gag. Motor examination: Outstretched hand with eyes closed, no drift noted. Power is symmetric on either side. Distal muscle groups atrophy noted. No fasciculation noted at rest. Deep tendon reflexes: Biceps, brachialis, and triceps absent. Both knees are 1+. Both ankles are absent. Plantars are upgoing on both sides. Coordination: Mild [id number] dysmetria noted. On making him to get up with support, he is keeping his both legs spread out and he is falling backwards. He was not able to do tandem walking and Romberg sign is positive. Sensory examination: Position senses are intact. Mildly decreased temperature sense and pinprick sensation in both lower extremities. CONCLUSION: As per my neurological examination and reviewing his medical history, Dr. 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 The patient is also suffering from bilateral distal symmetric sensorimotor neuropathy which is probably secondary to his underlying diabetes mellitus. WORKUP: CT of the head, lot of movement artifact with atrophy noted. No acute pathology is seen. EKG, normal sinus rhythm. LABORATORY DATA: WBC 5.3, hemoglobin 14.6, hematocrit 41.8, platelet 148. PT 12.7, INR 1.2, PTT 40, D-dimer 1980. Sodium 133, potassium 3.7, chloride 100, bicarbonate 25, BUN 38, creatinine 1.8, glucose 243, calcium 9.4, phosphorus 4.4, magnesium 2.1, AST 88, ALT 100. TSH 28.8. Urinalysis 2+ proteinuria with 1+ glycosuria. RECOMMENDATIONS: 1. The patient definitely needs MRI of the brain to assess his thalamic dysfunction. 2. Witnessed seizure activities. I would like him to have electroencephalogram to rule out any paroxysmal activities. In the meantime, I would like to keep him in seizure precaution and no antiepileptic drug is needed at present. 3. Aspirin and Plavix should be continued with antacids as he has been taking, continue angiotensin receptor blockers with statin. 4. Diabetic control. 5. Physical therapy should be given, Gatorade treatment and improve his strength with therapeutic exercise. The patient should be kept on fall precaution. The patient's condition has been well discussed with him. He agreed with my plan of management. Tan León MD MTDCas
[2018-10-21] MEDS: (Novolog) Insulin Aspart, Recombinant 100 u/ml 10 ml vial SC SCH ×7 (08:38→21:45)
[2018-10-21] MEDS: Enoxaparin 40 mg Syringe SC SCH (09:37)
[2018-10-21] MEDS: Magnesium Oxide 400 mg Tab UD PO SCH (09:38)
--- NOTE | 2018-10-21 10:45 | PN ---
DATE: 10/21/2018 TIME OF EVALUATION: 06:55 a.m. 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 PHYSICAL EXAMINATION: GENERAL: The patient is lying comfortably in the bed. He seems to be little confused. VITAL SIGNS: Blood pressure 152/68 with mean arterial pressure of 96, respiratory rate of 18, pulse rate 66 and regular with temperature of 97.8. MENTAL STATUS EXAMINATION: Otherwise, mentation seems to be intact. Speech is clear. Follows two-step command, no right and left confusion. Examination, which is unchanged to compare with my yesterday's exam. 1. The patient is requested to have MRI of the brain to assess his thalamic pathology. 2. Getting out of bed, physical therapy, and DVT prophylaxis. 3. Continue Plavix with other stroke prevention measures. 4. The patient also scheduled to have electroencephalogram for his possible seizures with history. No antiplatelet drugs are present. The patient will be followed closely with you. In the meantime, I would like to get medical records from [facility], which is requested. Tan León MD MTDD
--- NOTE | 2018-10-21 10:47 | NM ---
Date of service: 10/20/2018 COMPARISON: 10/19/2018 single-view chest TECHNIQUE: 6 mCi technetium 99-m Xe-133 Gas. 4.0 mCI technetium 99-m MAA administered intravenously. FINDINGS: VENTILATION COMPONENT: Normal. PERFUSION COMPONENT: Heterogeneous distribution of radionuclide. No geographic, segmental, lobar abnormalities apparent on the present examination. IMPRESSION: Low probability ventilation perfusion scan for pulmonary embolism. Concordant findings (preliminary report) provided by [facility].
--- NOTE | 2018-10-21 12:02 | CP.PCM.PN ---
Subjective - Date & Time of Evaluation Date of Evaluation: 10/21/18 Time of Evaluation: 12:00 - Subjective Subjective: still with dizziness upon rising V/Q low prob for PE HTN still elevated despite amlodipine and losartan renal function about same- stable CKD 3 appetite fair feels less nausea with zofran LFTs increased TSH lower Objective - Vital Signs/Intake and Output Vital Signs (last 24 hours): Temp Pulse Resp BP Pulse Ox 97.7 F 68 20 168/68 H 97 10/21/18 08:04 10/21/18 08:28 10/21/18 08:04 10/21/18 08:04 10/21/18 08:04 Intake and Output: 10/21/18 10/21/18 06:59 18:59 Output Total 400 Balance -400 - Medications Medications: Current Medications Amlodipine Besylate (Norvasc) 10 mg PO DAILY [facility] Last Admin: 10/21/18 09:38 Dose: 10 mg Clopidogrel Bisulfate (Plavix) 75 mg PO DAILY [facility] Last Admin: 10/21/18 09:37 Dose: 75 mg Dextrose (Dextrose 50% Inj) 0 ml IV STAT PRN; Protocol PRN Reason: Hypoglycemia Protocol Dextrose (Glutose 15) 0 gm PO ONCE PRN; Protocol PRN Reason: Hypoglycemia Protocol Docusate Sodium (Colace) 100 mg PO BID PRN PRN Reason: Constipation Last Admin: 10/21/18 09:38 Dose: 100 mg Enoxaparin Sodium (Lovenox) 30 mg SC DAILY [facility] Famotidine (Pepcid) 20 mg PO DAILY [facility] Last Admin: 10/21/18 09:37 Dose: 20 mg Fenofibrate (Tricor) 48 mg PO DAILY [facility] Finasteride (Proscar) 5 mg PO DAILY [facility] Last Admin: 10/21/18 09:38 Dose: 5 mg Folic Acid (Folic Acid) 1 mg PO DAILY [facility] Last Admin: 10/21/18 09:38 Dose: 1 mg Glucagon (Glucagen Diagnostic Kit) 0 mg IM STAT PRN; Protocol PRN Reason: Hypoglycemia Protocol Home Med (Silodosin [Rapaflo]) 8 mg PO DAILY [facility] Dextrose (Dextrose 5% In Water 1000 Ml) 1,000 mls @ 0 mls/hr IV .Q0M PRN; Protocol PRN Reason: Hypoglycemia Protocol Insulin Aspart (Novolog) 0 unit SC ACHS [facility]; Protocol Last Admin: 10/21/18 08:38 Dose: 4 units Insulin Aspart (Novolog) 20 unit SC TIDAC [facility] Last Admin: 10/21/18 08:38 Dose: 20 units Insulin Glargine (Lantus) 60 unit SC HS [facility] Last Admin: 10/20/18 21:38 Dose: 60 units Levothyroxine Sodium (Synthroid) 150 mcg PO DAILY@0630 [facility] Last Admin: 10/21/18 06:36 Dose: 150 mcg Losartan Potassium (Cozaar) 100 mg PO DAILY [facility] Last Admin: 10/21/18 09:37 Dose: 100 mg Magnesium Oxide (Mag-Ox) 400 mg PO DAILY [facility] Last Admin: 10/21/18 09:38 Dose: 400 mg Ondansetron HCl (Zofran Tab) 4 mg PO Q4 [facility] Last Admin: 10/21/18 08:38 Dose: 4 mg - Labs Labs: 10/19/18 23:56 10/20/18 08:00 PT 12.7 SECONDS (9.7-12.2) H 10/19/18 23:56 INR 1.2 10/19/18 23:56 APTT 40 SECONDS (21-34) H 10/19/18 23:56 - Constitutional Appears: No Acute Distress, Chronically Ill - Head Exam Head Exam: ATRAUMATIC, NORMAL INSPECTION - Eye Exam Eye Exam: EOMI, Normal appearance - Neck Exam Neck Exam: Normal Inspection. absent: Tenderness - Respiratory Exam Respiratory Exam: Clear to Ausculation Bilateral, NORMAL BREATHING PATTERN - Cardiovascular Exam Cardiovascular Exam: REGULAR RHYTHM, +S1 - GI/Abdominal Exam GI & Abdominal Exam: Soft. absent: Tenderness - Extremities Exam Extremities Exam: Normal Inspection. absent: Tenderness - Neurological Exam Neurological Exam: Awake, CN II-XII Intact - Skin Skin Exam: Dry, Warm Assessment and Plan (1) CKD (chronic kidney disease) stage 3, GFR 30-59 ml/min Status: Acute (2) HTN (hypertension) Status: Acute (3) Hypothyroidism Status: Acute (4) Seizures Status: Acute - Assessment and Plan (Free Text) Plan: lower levoxyl dose trial HCTZ for BP control liver US repeat labs
--- NOTE | 2018-10-21 14:43 | CARD ---
APPROVED REPORT Date of service: 10/19/2018 EKG Measurement Heart [id number] <Conclusion> Normal sinus rhythm Minimal voltage criteria for LVH, may be normal variant Borderline ECG
--- NOTE | 2018-10-21 16:16 | US ---
Date of service: 10/21/2018 HISTORY: elevated LFTs COMPARISON: None. TECHNIQUE: Sonographic evaluation of the abdomen. FINDINGS: LIVER: Measures 18.6 cm. Diffusely increased echogenicity of the liver parenchyma. Consistent with fatty infiltration. Simple cyst in right lobe of liver, 2.6 x 2.7 x 2.7 cm. Smooth contour. No biliary dilatation. GALLBLADDER: Partially contracted. Cholelithiasis. No mural thickening. No pericholecystic fluid. Negative sonographic Garrett sign. COMMON BILE DUCT: Measures 4 mm. No stones. No dilatation. PANCREAS: Unremarkable as visualized. No mass. No ductal dilatation. RIGHT KIDNEY: Measures 11.9cm. Normal echogenicity. No calculus, mass, or hydronephrosis. LEFT KIDNEY: Measures 10.9cm. Normal echogenicity. No calculus, mass, or hydronephrosis. SPLEEN: Normal in size and contour. No mass. AORTA: No aneurysmal dilatation. IVC: Unremarkable. OTHER FINDINGS: None. IMPRESSION: Mild hepatomegaly with fatty infiltration. Simple cyst right lobe of liver, 2.7 cm. Cholelithiasis without evidence of cholecystitis. No evidence of biliary obstruction.
[2018-10-21] MEDS: (Lantus) Insulin Glargine, Recombinant SC SCH (21:39)
[2018-10-21] MEDS: Latanoprost 2.5 ml Opht Soln OS SCH (21:46)
--- NOTE | 2018-10-21 23:13 | CP.PCM.PN ---
Subjective - Date & Time of Evaluation Date of Evaluation: 10/21/18 Time of Evaluation: 19:45 - Subjective Subjective: Patient less dizzy.Telemetry: RSR. V/Q lung scan: low probability of PE, Duplex carotid scan: mild heterogenuous plaques at both bulbs with no significant stenosis, antegrade vertebral arterial blood flow. Echo: mild LVH with normal systolic wall motion, grade I diastolic dysfunction, minimal AI, PI, MR, TR. Brain MRI and EEG result pending. Objective - Vital Signs/Intake and Output Vital Signs (last 24 hours): Temp Pulse Resp BP Pulse Ox 97.1 F L 78 20 148/78 99 10/21/18 16:26 10/21/18 16:26 10/21/18 16:26 10/21/18 16:26 10/21/18 16:26 - Medications Medications: Current Medications Amlodipine Besylate (Norvasc) 10 mg PO DAILY [facility] Last Admin: 10/21/18 09:38 Dose: 10 mg Dextrose (Dextrose 50% Inj) 0 ml IV STAT PRN; Protocol PRN Reason: Hypoglycemia Protocol Dextrose (Glutose 15) 0 gm PO ONCE PRN; Protocol PRN Reason: Hypoglycemia Protocol Docusate Sodium (Colace) 100 mg PO BID PRN PRN Reason: Constipation Last Admin: 10/21/18 18:47 Dose: 100 mg Enoxaparin Sodium (Lovenox) 30 mg SC DAILY [facility] Famotidine (Pepcid) 20 mg PO DAILY [facility] Last Admin: 10/21/18 09:37 Dose: 20 mg Fenofibrate (Tricor) 48 mg PO DAILY [facility] Finasteride (Proscar) 5 mg PO DAILY [facility] Last Admin: 10/21/18 09:38 Dose: 5 mg Folic Acid (Folic Acid) 1 mg PO DAILY [facility] Last Admin: 10/21/18 09:38 Dose: 1 mg Glucagon (Glucagen Diagnostic Kit) 0 mg IM STAT PRN; Protocol PRN Reason: Hypoglycemia Protocol Dextrose (Dextrose 5% In Water 1000 Ml) 1,000 mls @ 0 mls/hr IV .Q0M PRN; Protocol PRN Reason: Hypoglycemia Protocol Insulin Aspart (Novolog) 0 unit SC ACHS [facility]; Protocol Last Admin: 10/21/18 21:45 Dose: Not Given Insulin Aspart (Novolog) 20 unit SC TIDAC [facility] Last Admin: 10/21/18 18:40 Dose: 20 units Insulin Glargine (Lantus) 60 unit SC HS [facility] Last Admin: 10/21/18 21:39 Dose: 60 units Latanoprost (Xalatan Opht) 0.05 ml OS HS [facility] Last Admin: 10/21/18 21:46 Dose: 0.05 ml Levetiracetam (Keppra) 500 mg PO BID [facility] Levothyroxine Sodium (Synthroid) 125 mcg PO DAILY@0630 [facility] Losartan Potassium (Cozaar) 100 mg PO DAILY [facility] Last Admin: 10/21/18 09:37 Dose: 100 mg Magnesium Oxide (Mag-Ox) 400 mg PO DAILY [facility] Last Admin: 10/21/18 09:38 Dose: 400 mg Ondansetron HCl (Zofran Tab) 4 mg PO Q4 [facility] Last Admin: 10/21/18 21:46 Dose: Not Given Tamsulosin HCl (Flomax) 0.4 mg PO DAILY [facility] - Labs Labs: 10/19/18 23:56 10/20/18 08:00 PT 12.7 SECONDS (9.7-12.2) H 10/19/18 23:56 INR 1.2 10/19/18 23:56 APTT 40 SECONDS (21-34) H 10/19/18 23:56 - Constitutional Appears: Well, No Acute Distress - Head Exam Head Exam: NORMAL INSPECTION - Eye Exam Eye Exam: Normal appearance Pupil Exam: NORMAL ACCOMODATION - ENT Exam ENT Exam: Normal Exam - Neck Exam Neck Exam: Normal Inspection - Respiratory Exam Respiratory Exam: Clear to Ausculation Bilateral, NORMAL BREATHING PATTERN - Cardiovascular Exam Cardiovascular Exam: REGULAR RHYTHM - GI/Abdominal Exam GI & Abdominal Exam: Soft, Normal Bowel Sounds - Rectal Exam Rectal Exam: Deferred - Extremities Exam Extremities Exam: Normal Inspection - Back Exam Back Exam: NORMAL INSPECTION - Neurological Exam Neurological Exam: Alert, Awake, Oriented x3 - Psychiatric Exam Psychiatric exam: Anxious - Skin Skin Exam: Dry, Intact Assessment and Plan (1) Syncope Assessment & Plan: R/o vasoactive syncopy. Status: Acute (2) Seizures Assessment & Plan: Awaiting EEG result Status: Acute (3) Elevated d-dimer Assessment & Plan: Etiology unknown. V/Q lung scan: low probability of PE. Status: Acute (4) Uncontrolled insulin dependent diabetes mellitus Status: Acute (5) CKD (chronic kidney disease) Status: Acute
[2018-10-22] MEDS: Levothyroxine 125 MCG TAB PO SCH (06:31)
[2018-10-22 07:52] LABS: HEMOGLOBIN 15.1 g/dL (12.0-18.0); MEAN CELL VOLUME 94.1 fL (80.0-94.0); MEAN CORPUSCULAR HEMOGLOBIN 32.8 pg (27.0-31.0); RBC 4.58 Mil/uL (4.40-5.90); WHITE BLOOD COUNT 5.5 K/uL (4.8-10.8)
[2018-10-22 07:53] LABS: BASO % 0.5 % (0.0-2.0); EOS # 0.1 K/uL (0.0-0.7); EOS % 2.1 % (0.0-4.0); LYMPH # 1.8 K/uL (1.0-4.3); LYMPH % 33.3 % (20.0-40.0); MEAN CORPUSCULAR HGB CONC 34.9 g/dL (33.0-37.0); MEAN PLATELET VOLUME 8.4 fL (7.2-11.7); MONO # 0.4 K/uL (0.0-0.8); MONO % 7.6 % (0.0-10.0); NEUT # 3.1 K/uL (1.8-7.0); NEUT % 56.5 % (50.0-75.0); RED CELL DISTRIBUTION WIDTH 12.9 % (11.5-14.5)
[2018-10-22 08:17] LABS: ALB/GLOB RATIO 1.4 (1.0-2.1); ALBUMIN 3.8 g/dL (3.5-5.0); CALCIUM 9.4 mg/dl (8.6-10.4)
[2018-10-22] MEDS: (Novolog) Insulin Aspart, Recombinant 100 u/ml 10 ml vial SC SCH ×7 (08:30→21:41)
--- NOTE | 2018-10-22 09:05 | VASCLAB ---
Date of service: 10/21/2018 PROCEDURE: Carotid Duplex Exam. HISTORY: assess stenosis COMPARISON: None available. TECHNIQUE: Grayscale and duplex Doppler evaluation of the cervical carotid and vertebral arteries were performed. The common carotid, carotid bifurcations and cervical Internal Carotid Artery (ICA) and proximal External Carotid Artery (ECA) were evaluated. The vertebral arteries were evaluated for gross patency and flow direction. Report prepared by Hipolito Swanson, BS, RVT FINDINGS: RIGHT CAROTID ARTERIES: 1. Common Carotid Artery: No significant focal plaque formation of the right common carotid artery. Maximum Peak Systolic velocity: 90 cm/sec: End-diastolic velocity 12 cm/sec. 2. Carotid Bifurcation: plaque formation. Maximum Peak Systolic velocity: 71 cm/sec: End-diastolic velocity 8 cm/sec. 3. Internal Carotid Artery: Plaque description: Minimal calcific 3.1. Proximal Segment: Peak systolic velocity 79 cm/sec: End-diastolic velocity 9 cm/sec - % stenosis 0-15% 3.2. Middle Segment: Peak systolic velocity 57 cm/sec: End-diastolic velocity 13 cm/sec - % stenosis 0-15% 3.3. Distal Segment: Peak systolic velocity 71 cm/sec: End-diastolic velocity 11 cm/sec - % stenosis 0-15% 4. External Carotid Artery: No significant focal plaque formation. Peak systolic velocity 121 cm/sec 5. ICA/CCA Ratio: 1.4 LEFT CAROTID ARTERIES: 1. Common Carotid Artery: No significant focal plaque formation of the left common carotid artery. Maximum Peak Systolic velocity: 89 cm/sec: End-diastolic velocity 6 cm/sec. 2. Carotid Bifurcation: plaque formation. Maximum Peak Systolic velocity: 68 cm/sec: End-diastolic velocity 8 cm/sec. 3. Internal Carotid Artery: Plaque description: Minimal calcific 3.1. Proximal Segment: Peak systolic velocity 68 cm/sec: End-diastolic velocity 15 cm/sec - % stenosis 0-15% 3.2. Middle Segment: Peak systolic velocity 65 cm/sec: End-diastolic velocity 16 cm/sec - % stenosis 0-15% 3.3. Distal Segment: Peak systolic velocity 57 cm/sec: End-diastolic velocity 14 cm/sec - % stenosis 0-15% 4. External Carotid Artery: No significant focal plaque formation. Peak systolic velocity 94 cm/sec 5. ICA/CCA Ratio: 0.8 VERTEBRAL ARTERIES: 1. Right Vertebral Artery: The right vertebral artery flow direction is antegrade. 2. Left Vertebral Artery: The left vertebral artery flow direction is antegrade. OTHER FINDINGS: 1. Right Brachial Blood pressure: 160 mmHg. 2. Left Brachial Blood pressure: Unable to obtain IMPRESSION: RIGHT: Duplex scan does not suggest hemodynamically significant stenosis of the right extracranial carotid arteries. LEFT: Duplex scan does not suggest hemodynamically significant stenosis of the left extracranial carotid arteries.
--- NOTE | 2018-10-22 09:45 | PN ---
DATE: 10/22/2018 TIME OF EVALUATION: 07:05 a.m. 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 VITAL SIGNS: Blood pressure 157/64, mean artery pressure of 95, respiratory rate 18, and temperature 97.9. The patient agreed, and he went for the MRI of the brain yesterday. He feels better by himself. Physical therapy has started, and full course of treatment will be given today. His examination which is unchanged too compared with my previous examination. His electroencephalogram, reviewed by me, showed paroxysmal activities in left frontal region consistent with epileptiform focus. His previous MRI also reviewed showed atrophy with periventricular ischemic changes in multiple regions, which does not explain his current problem. Because of the two subsequent neurological events, MRI of the brain should be done, which has been done already. Because of some technical issue, I could not able to open the MRI at present. However, that will be reviewed. Being seizures and abnormal EEG, the patient was started on Keppra 500 mg twice a day at present. In the meantime, rest of the medication should be continued with physical therapy. Tan León MD
[2018-10-22] MEDS: Magnesium Oxide 400 mg Tab UD PO SCH (10:09)
[2018-10-22] MEDS: Enoxaparin 30 mg Syringe SC SCH (10:09)
--- NOTE | 2018-10-22 10:18 | MRI ---
Date of service: 10/21/2018 PROCEDURE: MRI BRAIN WITHOUT CONTRAST HISTORY: mass Vs ischemic process COMPARISON: Noncontrast head CT from 10/19/2018. TECHNIQUE: Multiplanar, multisequence MR images of the brain were obtained without intravenous contrast enhancement. FINDINGS: HEMORRHAGE: None DWI: No evidence of an acute or early subacute infarction. BRAIN PARENCHYMA: There are mild chronic microangiopathic changes. There is no mass, mass effect or abnormal extra-axial fluid collection. There is no territorial infarction. The midline sagittal structures are normal. VENTRICLES: There is moderate age-related global parenchymal volume loss and proportionate enlargement of the ventricles and cortical sulci. CRANIUM: There is normal bone marrow signal pattern. ORBITS: Grossly unremarkable. PARANASAL SINUSES/MASTOIDS: There is mild mucosal thickening in the paranasal sinuses. The mastoid air cells are clear. VASCULAR SYSTEM: There are normal signal voids in the larger intracranial arteries. OTHER FINDINGS: None. IMPRESSION: No acute intracranial abnormality. Mild chronic microangiopathic changes and moderate age-related global parenchymal volume loss.
--- NOTE | 2018-10-22 13:20 | CARD ---
APPROVED REPORT Date of service: 10/21/2018 EXAM: Two-dimensional and M-mode echocardiogram with Doppler and color Doppler. INDICATION Syncope ckd/sob 2D DIMENSIONS IVSd1.3 (0.7-1.1cm)LVDd4.2 (3.9-5.9cm) PWd1.4 (0.7-1.1cm)LA Xtyits40 (18-58mL) LVDs2.3 (2.5-4.0cm)FS (%) 45.2 % LVEF (%)76.9 (>50%)LVEF (Payton's)63.16 % IVC0.00 cm M-Mode DIMENSIONS RVDd2.31 (2.1-3.2cm)Left Atrium (MM)3.52 (2.5-4.0cm) IVSd1.38 (0.7-1.1cm)Aortic Root3.42 (2.2-3.7cm) LVDd4.26 (4.0-5.6cm)Aortic Cusp Exc.1.82 (1.5-2.0cm) PWd1.18 (0.7-1.1cm)FS (%) 41 % LVDs2.51 (2.0-3.8cm)LVEF (%)72 (>50%) Aortic Valve AI P 1/2 [id number] Mitral Valve MV E Iusgjmeq17.0cm/sMV A Ihvjltoy613.6cm/sE/A ratio0.6 EHCK374.22 cm/s TDI Lateral E' Peak V5.84cm/sMedial E' Peak V5.58cm/sE/Lateral E'10.8 E/Medial E'11.3 LEFT VENTRICLE The left ventricle is normal size. There is moderate concentric left ventricular hypertrophy. The Ejection Fraction is 60-65%. There is normal LV segmental wall motion. Transmitral Doppler flow pattern is Grade I-abnormal relaxation pattern. RIGHT VENTRICLE The right ventricle is normal size. The right ventricular systolic function is normal. ATRIA The left atrium size is normal. The right atrium size is normal. The interatrial septum is intact with no evidence for an atrial septal defect. AORTIC VALVE The aortic valve is trileaflet. There is mild aortic regurgitation. MITRAL VALVE The mitral valve is normal in structure. Mitral regurgitation is trace. TRICUSPID VALVE The tricuspid valve is normal in structure. There is no tricuspid valve regurgitation noted. PULMONIC VALVE The pulmonary valve is normal in structure. There is trace pulmonic valvular regurgitation. GREAT VESSELS The aortic root is normal in size. The IVC is normal in size and collapses >50% with inspiration. PERICARDIAL EFFUSION There is no pericardial effusion. <Conclusion> The left ventricle is normal size. There is moderate concentric left ventricular hypertrophy. The Ejection Fraction is 60-65%. Transmitral Doppler flow pattern is Grade I-abnormal relaxation pattern. The left atrium size is normal. There is mild aortic regurgitation. The aortic root is normal in size. The IVC is normal in size and collapses >50% with inspiration.
[2018-10-22] MEDS: Latanoprost 2.5 ml Opht Soln OS SCH (21:50)
[2018-10-22] MEDS: (Lantus) Insulin Glargine, Recombinant SC SCH (21:50)
--- NOTE | 2018-10-22 22:51 | CP.PCM.PN ---
Subjective - Date & Time of Evaluation Date of Evaluation: 10/22/18 Time of Evaluation: 14:00 - Subjective Subjective: Patient feels slightly better. According to Dr León, the EEG revealed left frontal epileptiform activities. Patient is now on Keppra 500 mg PO BID. Hydrochlorothiazide is discontinued because of a suspiscion of orthostatic hypotension. Will add Bisoprolol to control BP. Objective - Vital Signs/Intake and Output Vital Signs (last 24 hours): Temp Pulse Resp BP Pulse Ox 98.3 F 83 20 148/70 98 10/22/18 16:00 10/22/18 18:00 10/22/18 16:00 10/22/18 16:00 10/22/18 16:00 - Medications Medications: Current Medications Amlodipine Besylate (Norvasc) 10 mg PO DAILY [facility] Last Admin: 10/22/18 10:09 Dose: 10 mg Bisoprolol Fumarate (Zebeta) 5 mg PO DAILY [facility] Dextrose (Dextrose 50% Inj) 0 ml IV STAT PRN; Protocol PRN Reason: Hypoglycemia Protocol Dextrose (Glutose 15) 0 gm PO ONCE PRN; Protocol PRN Reason: Hypoglycemia Protocol Docusate Sodium (Colace) 100 mg PO BID PRN PRN Reason: Constipation Last Admin: 10/22/18 10:09 Dose: 100 mg Enoxaparin Sodium (Lovenox) 30 mg SC DAILY [facility] Last Admin: 10/22/18 10:09 Dose: 30 mg Famotidine (Pepcid) 20 mg PO DAILY [facility] Last Admin: 10/22/18 10:09 Dose: 20 mg Fenofibrate (Tricor) 48 mg PO DAILY [facility] Last Admin: 10/22/18 10:09 Dose: 48 mg Finasteride (Proscar) 5 mg PO DAILY [facility] Last Admin: 10/22/18 10:09 Dose: 5 mg Folic Acid (Folic Acid) 1 mg PO DAILY [facility] Last Admin: 10/22/18 10:08 Dose: 1 mg Glucagon (Glucagen Diagnostic Kit) 0 mg IM STAT PRN; Protocol PRN Reason: Hypoglycemia Protocol Dextrose (Dextrose 5% In Water 1000 Ml) 1,000 mls @ 0 mls/hr IV .Q0M PRN; Protocol PRN Reason: Hypoglycemia Protocol Insulin Aspart (Novolog) 0 unit SC ACHS [facility]; Protocol Last Admin: 10/22/18 21:41 Dose: Not Given Insulin Aspart (Novolog) 20 unit SC TIDAC [facility] Last Admin: 10/22/18 18:41 Dose: 20 units Insulin Glargine (Lantus) 60 unit SC HS [facility] Last Admin: 10/22/18 21:50 Dose: 60 units Latanoprost (Xalatan Opht) 0.05 ml OS HS [facility] Last Admin: 10/22/18 21:50 Dose: 0.05 ml Levetiracetam (Keppra) 500 mg PO BID [facility] Last Admin: 10/22/18 18:42 Dose: 500 mg Levothyroxine Sodium (Synthroid) 125 mcg PO DAILY@0630 [facility] Last Admin: 10/22/18 06:31 Dose: 125 mcg Losartan Potassium (Cozaar) 100 mg PO DAILY [facility] Last Admin: 10/22/18 10:08 Dose: 100 mg Magnesium Oxide (Mag-Ox) 400 mg PO DAILY [facility] Last Admin: 10/22/18 10:09 Dose: 400 mg Ondansetron HCl (Zofran Tab) 4 mg PO Q4 [facility] Last Admin: 10/22/18 21:51 Dose: Not Given Tamsulosin HCl (Flomax) 0.4 mg PO DAILY [facility] Last Admin: 10/22/18 10:08 Dose: 0.4 mg - Labs Labs: 10/22/18 07:41 10/22/18 07:41 PT 12.7 SECONDS (9.7-12.2) H 10/19/18 23:56 INR 1.2 10/19/18 23:56 APTT 40 SECONDS (21-34) H 10/19/18 23:56 - Constitutional Appears: Well, No Acute Distress - Head Exam Head Exam: NORMAL INSPECTION - Eye Exam Eye Exam: Normal appearance - ENT Exam ENT Exam: Normal Exam - Neck Exam Neck Exam: Normal Inspection - Respiratory Exam Respiratory Exam: Clear to Ausculation Bilateral - Cardiovascular Exam Cardiovascular Exam: REGULAR RHYTHM - GI/Abdominal Exam GI & Abdominal Exam: Soft, Normal Bowel Sounds - Rectal Exam Rectal Exam: Deferred - Extremities Exam Extremities Exam: Normal Inspection - Back Exam Back Exam: NORMAL INSPECTION - Neurological Exam Neurological Exam: Alert, Awake, Oriented x3 - Psychiatric Exam Psychiatric exam: Anxious - Skin Skin Exam: Dry, Normal Color, Warm Assessment and Plan (1) Syncope Status: Acute (2) Seizures Assessment & Plan: On Keppra 500 mg PO BID Status: Acute (3) Elevated d-dimer Status: Acute (4) Uncontrolled insulin dependent diabetes mellitus Status: Acute (5) CKD (chronic kidney disease) Status: Acute
[2018-10-23] MEDS: Levothyroxine 125 MCG TAB PO SCH (06:16)
[2018-10-23 07:37] LABS: BASO % 0.3 % (0.0-2.0); EOS # 0.1 K/uL (0.0-0.7); EOS % 1.7 % (0.0-4.0); HEMOGLOBIN 14.7 g/dL (12.0-18.0); LYMPH # 1.9 K/uL (1.0-4.3); LYMPH % 25.6 % (20.0-40.0); MEAN CELL VOLUME 93.9 fL (80.0-94.0); MEAN CORPUSCULAR HEMOGLOBIN 32.6 pg (27.0-31.0); MEAN CORPUSCULAR HGB CONC 34.8 g/dL (33.0-37.0); MEAN PLATELET VOLUME 8.5 fL (7.2-11.7); MONO # 0.6 K/uL (0.0-0.8); MONO % 7.4 % (0.0-10.0); NEUT # 4.9 K/uL (1.8-7.0); NRBC % 0.2 % (0.0-2.0); RBC 4.52 Mil/uL (4.40-5.90); RED CELL DISTRIBUTION WIDTH 12.9 % (11.5-14.5); WHITE BLOOD COUNT 7.5 K/uL (4.8-10.8)
[2018-10-23] MEDS: (Novolog) Insulin Aspart, Recombinant 100 u/ml 10 ml vial SC SCH ×7 (08:54→22:14)
[2018-10-23] MEDS: Magnesium Oxide 400 mg Tab UD PO SCH (09:01)
[2018-10-23] MEDS: Enoxaparin 30 mg Syringe SC SCH (09:01)
[2018-10-23 09:55] LABS: ALB/GLOB RATIO 1.5 (1.0-2.1); CALCIUM 9.3 mg/dl (8.6-10.4)
--- NOTE | 2018-10-23 10:12 | EEG ---
DATE: 10/21/2018 This is a 16-channel electroencephalogram of awake adult. During the study, photic stimulation was performed and hyperventilation was not performed. The resting electroencephalogram consists of 20 to 30 microvolt diffuse 5 to 6 Hz theta activity seen at parietal and occipital leads. Intermittent slow activities followed with K-complex consistent with N2 sleep. This also showed some sleep spindle activities. There is snoring muscle artifact contaminated the background rhythm intermittently. There is high-amplitude delta activity at frontal lead noted from the beginning. Later, some muscle artifact followed with the prominent left frontal sharp wave activities noted. This followed with generalized slow activities. IMPRESSION: This is an abnormal electroencephalogram because of slow activities followed with N2 sleep. During the period, the patient has showed some polyphasic sharp wave activities noted at the left frontal lead. There is a possibility of epileptiform focus. Please correlate the findings with the neurological and radiological studies. Tan León MD
--- NOTE | 2018-10-23 14:08 | CP.PCM.PN ---
Subjective - Date & Time of Evaluation Date of Evaluation: 10/23/18 Time of Evaluation: 14:06 - Subjective Subjective: still dizzy on standing on keppra for + EEG no chest pain no sob no nausea no pruritis no urinary issues no fever no rash no headache no abdominal pain Objective - Vital Signs/Intake and Output Vital Signs (last 24 hours): Temp Pulse Resp BP Pulse Ox 97.9 F 62 20 132/64 95 10/23/18 08:00 10/23/18 08:00 10/23/18 08:00 10/23/18 08:00 10/23/18 08:00 Intake and Output: 10/23/18 10/23/18 06:59 18:59 Output Total 950 Balance -950 - Medications Medications: Current Medications Amlodipine Besylate (Norvasc) 10 mg PO DAILY [facility] Last Admin: 10/23/18 09:02 Dose: 10 mg Bisoprolol Fumarate (Zebeta) 5 mg PO DAILY [facility] Last Admin: 10/23/18 09:02 Dose: 5 mg Dextrose (Dextrose 50% Inj) 0 ml IV STAT PRN; Protocol PRN Reason: Hypoglycemia Protocol Dextrose (Glutose 15) 0 gm PO ONCE PRN; Protocol PRN Reason: Hypoglycemia Protocol Docusate Sodium (Colace) 100 mg PO BID PRN PRN Reason: Constipation Last Admin: 10/23/18 09:04 Dose: 100 mg Enoxaparin Sodium (Lovenox) 30 mg SC DAILY [facility] Last Admin: 10/23/18 09:01 Dose: 30 mg Famotidine (Pepcid) 20 mg PO DAILY [facility] Last Admin: 10/23/18 09:02 Dose: 20 mg Fenofibrate (Tricor) 48 mg PO DAILY [facility] Last Admin: 10/23/18 09:01 Dose: 48 mg Finasteride (Proscar) 5 mg PO DAILY [facility] Last Admin: 10/23/18 09:01 Dose: 5 mg Folic Acid (Folic Acid) 1 mg PO DAILY [facility] Last Admin: 10/23/18 09:02 Dose: 1 mg Glucagon (Glucagen Diagnostic Kit) 0 mg IM STAT PRN; Protocol PRN Reason: Hypoglycemia Protocol Dextrose (Dextrose 5% In Water 1000 Ml) 1,000 mls @ 0 mls/hr IV .Q0M PRN; Protocol PRN Reason: Hypoglycemia Protocol Insulin Aspart (Novolog) 0 unit SC ACHS [facility]; Protocol Last Admin: 10/23/18 11:52 Dose: 4 units Insulin Aspart (Novolog) 20 unit SC TIDAC [facility] Last Admin: 10/23/18 11:54 Dose: 20 units Insulin Glargine (Lantus) 60 unit SC HS [facility] Last Admin: 10/22/18 21:50 Dose: 60 units Latanoprost (Xalatan Opht) 0.05 ml OS HS [facility] Last Admin: 10/22/18 21:50 Dose: 0.05 ml Levetiracetam (Keppra) 500 mg PO BID [facility] Last Admin: 10/23/18 09:02 Dose: 500 mg Levothyroxine Sodium (Synthroid) 125 mcg PO DAILY@0630 [facility] Last Admin: 10/23/18 06:16 Dose: 125 mcg Losartan Potassium (Cozaar) 100 mg PO DAILY [facility] Last Admin: 10/23/18 09:01 Dose: 100 mg Magnesium Oxide (Mag-Ox) 400 mg PO DAILY [facility] Last Admin: 10/23/18 09:01 Dose: 400 mg Ondansetron HCl (Zofran Tab) 4 mg PO Q4 [facility] Last Admin: 10/23/18 13:44 Dose: 4 mg Tamsulosin HCl (Flomax) 0.4 mg PO DAILY [facility] Last Admin: 10/23/18 09:04 Dose: 0.4 mg - Labs Labs: 10/23/18 07:18 10/23/18 07:18 PT 12.7 SECONDS (9.7-12.2) H 10/19/18 23:56 INR 1.2 10/19/18 23:56 APTT 40 SECONDS (21-34) H 10/19/18 23:56 - Constitutional Appears: Non-toxic, Chronically Ill - Head Exam Head Exam: ATRAUMATIC, NORMAL INSPECTION - Eye Exam Eye Exam: EOMI - ENT Exam ENT Exam: Mucous Membranes Moist - Neck Exam Neck Exam: Full ROM. absent: Lymphadenopathy - Respiratory Exam Respiratory Exam: Clear to Ausculation Bilateral. absent: Respiratory Distress - Cardiovascular Exam Cardiovascular Exam: RRR. absent: Rubs - GI/Abdominal Exam GI & Abdominal Exam: Distended, Soft. absent: Tenderness - Extremities Exam Extremities Exam: absent: Pedal Edema Additional comments: wearing compression stockings - Neurological Exam Neurological Exam: Alert, Awake, Oriented x3 Assessment and Plan - Assessment and Plan (Free Text) Assessment: ckd 3 dizzy, to check orthostatics with shift on keppra for +EEG activity PT for dizziness
[2018-10-23] MEDS: (Lantus) Insulin Glargine, Recombinant SC SCH (22:13)
[2018-10-23] MEDS: Latanoprost 2.5 ml Opht Soln OS SCH (22:14)
--- NOTE | 2018-10-24 01:20 | CP.PCM.PN ---
Subjective - Date & Time of Evaluation Date of Evaluation: 10/23/18 Time of Evaluation: 20:00 - Subjective Subjective: Patient complaining of lightheadedness with blurred vision and drop of 20 mmHg of systolic pressure on standing about 5-10 minutes. The lightheadedness resolved with a supine position. The patient definitely has postural orthostatic hypotension responsible for his symptoms. Will discontinue Flomax, Amlodipine, start Inderal. If symptoms persist, will add Florinef and / or ProAmatine. Objective - Vital Signs/Intake and Output Vital Signs (last 24 hours): Temp Pulse Resp BP Pulse Ox 97.8 F 60 20 135/75 99 10/23/18 23:14 10/23/18 23:14 10/23/18 23:14 10/23/18 23:14 10/23/18 23:14 - Medications Medications: Current Medications Amlodipine Besylate (Norvasc) 10 mg PO DAILY [facility] Last Admin: 10/23/18 09:02 Dose: 10 mg Bisoprolol Fumarate (Zebeta) 5 mg PO DAILY [facility] Last Admin: 10/23/18 09:02 Dose: 5 mg Dextrose (Dextrose 50% Inj) 0 ml IV STAT PRN; Protocol PRN Reason: Hypoglycemia Protocol Dextrose (Glutose 15) 0 gm PO ONCE PRN; Protocol PRN Reason: Hypoglycemia Protocol Docusate Sodium (Colace) 100 mg PO BID PRN PRN Reason: Constipation Last Admin: 10/23/18 09:04 Dose: 100 mg Enoxaparin Sodium (Lovenox) 30 mg SC DAILY [facility] Last Admin: 10/23/18 09:01 Dose: 30 mg Famotidine (Pepcid) 20 mg PO DAILY [facility] Last Admin: 10/23/18 09:02 Dose: 20 mg Fenofibrate (Tricor) 48 mg PO DAILY [facility] Last Admin: 10/23/18 09:01 Dose: 48 mg Finasteride (Proscar) 5 mg PO DAILY [facility] Last Admin: 10/23/18 09:01 Dose: 5 mg Folic Acid (Folic Acid) 1 mg PO DAILY [facility] Last Admin: 10/23/18 09:02 Dose: 1 mg Glucagon (Glucagen Diagnostic Kit) 0 mg IM STAT PRN; Protocol PRN Reason: Hypoglycemia Protocol Dextrose (Dextrose 5% In Water 1000 Ml) 1,000 mls @ 0 mls/hr IV .Q0M PRN; Protocol PRN Reason: Hypoglycemia Protocol Insulin Aspart (Novolog) 0 unit SC ACHS [facility]; Protocol Last Admin: 10/23/18 22:14 Dose: Not Given Insulin Aspart (Novolog) 20 unit SC TIDAC [facility] Last Admin: 10/23/18 18:16 Dose: 20 unit Insulin Glargine (Lantus) 70 unit SC HS [facility] Last Admin: 10/23/18 22:13 Dose: 70 units Latanoprost (Xalatan Opht) 0.05 ml OS HS [facility] Last Admin: 10/23/18 22:14 Dose: 0.05 ml Levetiracetam (Keppra) 500 mg PO BID [facility] Last Admin: 10/23/18 18:18 Dose: 500 mg Levothyroxine Sodium (Synthroid) 125 mcg PO DAILY@0630 [facility] Last Admin: 10/23/18 06:16 Dose: 125 mcg Losartan Potassium (Cozaar) 100 mg PO DAILY [facility] Last Admin: 10/23/18 09:01 Dose: 100 mg Magnesium Oxide (Mag-Ox) 400 mg PO DAILY [facility] Last Admin: 10/23/18 09:01 Dose: 400 mg Ondansetron HCl (Zofran Tab) 4 mg PO Q4 [facility] Last Admin: 10/24/18 00:40 Dose: 4 mg - Labs Labs: 10/23/18 07:18 10/23/18 07:18 PT 12.7 SECONDS (9.7-12.2) H 10/19/18 23:56 INR 1.2 10/19/18 23:56 APTT 40 SECONDS (21-34) H 10/19/18 23:56 - Constitutional Appears: Well, No Acute Distress - Head Exam Head Exam: NORMAL INSPECTION - Eye Exam Eye Exam: Normal appearance Pupil Exam: NORMAL ACCOMODATION - ENT Exam ENT Exam: Normal Exam - Neck Exam Neck Exam: Normal Inspection - Respiratory Exam Respiratory Exam: Clear to Ausculation Bilateral, NORMAL BREATHING PATTERN - Cardiovascular Exam Cardiovascular Exam: REGULAR RHYTHM - GI/Abdominal Exam GI & Abdominal Exam: Soft, Normal Bowel Sounds - Rectal Exam Rectal Exam: Deferred - Exam Exam: NORMAL INSPECTION - Extremities Exam Extremities Exam: Normal Inspection - Back Exam Back Exam: NORMAL INSPECTION - Neurological Exam Neurological Exam: Alert, Awake, Oriented x3 - Psychiatric Exam Psychiatric exam: Anxious - Skin Skin Exam: Dry, Intact, Normal Color, Warm Assessment and Plan (1) Syncope Status: Acute (2) Seizures Status: Acute (3) Elevated d-dimer Status: Acute (4) Uncontrolled insulin dependent diabetes mellitus Status: Acute (5) CKD (chronic kidney disease) Status: Acute (6) Orthostatic hypotension Status: Acute (7) Orthostatic hypotension Assessment & Plan: Increase PO hydration, discontinue Flomax, Amlodipine. Try Inderal . May add Florinrf and/or Midodrine. Status: Acute
[2018-10-24] MEDS: Levothyroxine 125 MCG TAB PO SCH (06:00)
--- NOTE | 2018-10-24 07:05 | PN ---
DATE: 10/23/2018 TIME OF EVALUATION: 07:10 a.m. NEUROLOGICAL PROBLEM: Seizures with FLOORHAND ischemic process. PHYSICAL EXAMINATION: VITAL SIGNS: Blood pressure 138/69, mean artery pressure of 92, respiratory rate 18 temperature 97.8 with a pulse rate of 69 and regular. The patient arousable on calling his name. Awake, slept good, no new symptoms. The patient has been cooperating with physical therapy. The patient condition also discussed with his yesterday. The patient is tolerating good with Keppra. No new episodes of any seizures or any change in mental status during the hospitalization since Keppra is started. His workup MRI of the brain has been reviewed, no acute ischemic process. The patient is a good candidate for acute rehabilitation. Control his diabetes mellitus, statin and antiplatelets, Statin angiotensin receptor you or LIZA inhibitors. During the hospitalization, active physical therapy should be continued. Continue Keppra for now 500 mg twice a day. The patient is neurologically stable at this point. The patient is medically stable. The patient can be transferred to acute rehabilitation. Tan León MD TONIA
--- NOTE | 2018-10-24 09:59 | PN ---
DATE: 10/24/2018 TIME OF EVALUATION: 6:55 a.m. 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 PHYSICAL EXAMINATION: VITAL SIGNS: Blood pressure 135/75, mean arterial pressure of 95, respiratory rate 18, pulse rate 61 regular, and temperature 97.8. The patient is complaining of lightheadedness when he sits up. There is a documented evidence of systolic blood pressure drop when he changes his position from lying to sitting and to stand. Medications being adjusted by his PMD. Hopefully, it will take care of his partial hypotension. RECOMMENDATIONS: Continue Keppra 500 mg twice a day and physical therapy with antiplatelets that he has been getting (Plavix). If medically stable, the patient can be discharged to acute rehabilitation. The patient will be followed as outpatient if it is necessary. At this point, I would like myself signing off from neurological followup if any changes. Please consider to call me back. Tan León MD MTDD
[2018-10-24] MEDS ORDERED: PROPRANOLOL 160 MG PO SCH ×2 (10:00→13:00)
[2018-10-24] MEDS: (Novolog) Insulin Aspart, Recombinant 100 u/ml 10 ml vial SC SCH ×7 (10:02→22:31)
[2018-10-24] MEDS: Magnesium Oxide 400 mg Tab UD PO SCH (10:03)
[2018-10-24] MEDS: Enoxaparin 30 mg Syringe SC SCH (10:08)
--- NOTE | 2018-10-24 15:13 | CP.PCM.PN ---
Subjective - Date & Time of Evaluation Date of Evaluation: 10/24/18 Time of Evaluation: 15:07 - Subjective Subjective: pt seen and examined sitting in bed, no dizziness at present orthostatics positive on keppra for + EEG no chest pain,no sob, no nausea ROS- as per HPI, other than that 10 point ROS negative Objective - Vital Signs/Intake and Output Vital Signs (last 24 hours): Temp Pulse Resp BP Pulse Ox 97.4 F L 58 L 20 151/67 H 99 10/24/18 07:00 10/24/18 07:00 10/24/18 07:00 10/24/18 07:00 10/24/18 07:00 Intake and Output: 10/24/18 10/24/18 06:59 18:59 Output Total 800 Balance -800 - Medications Medications: Current Medications Dextrose (Dextrose 50% Inj) 0 ml IV STAT PRN; Protocol PRN Reason: Hypoglycemia Protocol Dextrose (Glutose 15) 0 gm PO ONCE PRN; Protocol PRN Reason: Hypoglycemia Protocol Docusate Sodium (Colace) 100 mg PO BID PRN PRN Reason: Constipation Last Admin: 10/23/18 09:04 Dose: 100 mg Enoxaparin Sodium (Lovenox) 30 mg SC DAILY [facility] Last Admin: 10/24/18 10:08 Dose: 30 mg Famotidine (Pepcid) 20 mg PO DAILY [facility] Last Admin: 10/24/18 10:03 Dose: 20 mg Fenofibrate (Tricor) 48 mg PO DAILY [facility] Last Admin: 10/24/18 12:12 Dose: 48 mg Finasteride (Proscar) 5 mg PO DAILY [facility] Last Admin: 10/24/18 10:03 Dose: 5 mg Folic Acid (Folic Acid) 1 mg PO DAILY [facility] Last Admin: 10/24/18 10:03 Dose: 1 mg Glucagon (Glucagen Diagnostic Kit) 0 mg IM STAT PRN; Protocol PRN Reason: Hypoglycemia Protocol Dextrose (Dextrose 5% In Water 1000 Ml) 1,000 mls @ 0 mls/hr IV .Q0M PRN; Protocol PRN Reason: Hypoglycemia Protocol Insulin Aspart (Novolog) 0 unit SC ACHS [facility]; Protocol Last Admin: 10/24/18 12:12 Dose: 6 unit Insulin Aspart (Novolog) 20 unit SC TIDAC [facility] Last Admin: 10/24/18 12:13 Dose: 20 unit Insulin Glargine (Lantus) 70 unit SC HS [facility] Last Admin: 10/23/18 22:13 Dose: 70 units Latanoprost (Xalatan Opht) 0.05 ml OS [facility] Last Admin: 10/23/18 22:14 Dose: 0.05 ml Levetiracetam (Keppra) 500 mg PO BID [facility] Last Admin: 10/24/18 10:03 Dose: 500 mg Levothyroxine Sodium (Synthroid) 125 mcg PO DAILY@0630 [facility] Last Admin: 10/24/18 06:00 Dose: 125 mcg Losartan Potassium (Cozaar) 100 mg PO DAILY [facility] Last Admin: 10/24/18 10:03 Dose: 100 mg Magnesium Oxide (Mag-Ox) 400 mg PO DAILY [facility] Last Admin: 10/24/18 10:03 Dose: 400 mg Ondansetron HCl (Zofran Tab) 4 mg PO Q4 [facility] Last Admin: 10/24/18 12:14 Dose: Not Given Propranolol HCl (Inderal) 60 mg PO Q8H [facility] Last Admin: 10/24/18 13:52 Dose: 60 mg - Labs Labs: 10/23/18 07:18 10/23/18 07:18 PT 12.7 SECONDS (9.7-12.2) H 10/19/18 23:56 INR 1.2 10/19/18 23:56 APTT 40 SECONDS (21-34) H 10/19/18 23:56 - Constitutional Appears: Well, Non-toxic - Head Exam Head Exam: ATRAUMATIC, NORMOCEPHALIC - Eye Exam Eye Exam: EOMI, PERRL - ENT Exam ENT Exam: Mucous Membranes Moist - Neck Exam Neck Exam: Full ROM. absent: Lymphadenopathy - Respiratory Exam Respiratory Exam: Clear to Ausculation Bilateral. absent: Rhonchi, Wheezes - Cardiovascular Exam Cardiovascular Exam: REGULAR RHYTHM, +S1 - GI/Abdominal Exam GI & Abdominal Exam: Soft. absent: Tenderness - Extremities Exam Extremities Exam: Full ROM. absent: Pedal Edema - Neurological Exam Neurological Exam: Alert, Awake, Oriented x3 - Psychiatric Exam Psychiatric exam: Normal Affect, Normal Mood - Skin Skin Exam: Intact, Warm Assessment and Plan (1) CKD (chronic kidney disease) stage 3, GFR 30-59 ml/min Status: Acute (2) HTN (hypertension) Status: Acute (3) Hypothyroidism Status: Acute (4) Orthostatic hypotension Status: Acute (5) Syncope Status: Acute (6) Uncontrolled insulin dependent diabetes mellitus Status: Acute - Assessment and Plan (Free Text) Plan: cr at baseline agree with holding amlodipine resume rapa flow as pt with difficulty voiding ' obi stockings physical therapy
[2018-10-24] MEDS: Latanoprost 2.5 ml Opht Soln OS SCH (22:29)
[2018-10-24] MEDS: (Lantus) Insulin Glargine, Recombinant SC SCH (22:35)
--- NOTE | 2018-10-25 05:57 | CP.PCM.PN ---
Subjective - Date & Time of Evaluation Date of Evaluation: 10/24/18 Time of Evaluation: 19:30 - Subjective Subjective: Patient still with lightheadeness when stading for 10-15 minutes. No SOB sofar with Inderal PO. To continue to monitor supine, sitting and standing BP. Objective - Vital Signs/Intake and Output Vital Signs (last 24 hours): Temp Pulse Resp BP Pulse Ox 97.7 F 60 20 134/49 L 97 10/24/18 23:25 10/24/18 23:25 10/24/18 23:25 10/24/18 23:25 10/24/18 23:25 Intake and Output: 10/24/18 10/25/18 18:59 06:59 Intake Total 480 Output Total 400 Balance 80 - Medications Medications: Current Medications Dextrose (Dextrose 50% Inj) 0 ml IV STAT PRN; Protocol PRN Reason: Hypoglycemia Protocol Dextrose (Glutose 15) 0 gm PO ONCE PRN; Protocol PRN Reason: Hypoglycemia Protocol Docusate Sodium (Colace) 100 mg PO BID PRN PRN Reason: Constipation Last Admin: 10/23/18 09:04 Dose: 100 mg Enoxaparin Sodium (Lovenox) 30 mg SC DAILY [facility] Last Admin: 10/24/18 10:08 Dose: 30 mg Famotidine (Pepcid) 20 mg PO DAILY [facility] Last Admin: 10/24/18 10:03 Dose: 20 mg Fenofibrate (Tricor) 48 mg PO DAILY [facility] Last Admin: 10/24/18 12:12 Dose: 48 mg Finasteride (Proscar) 5 mg PO DAILY [facility] Last Admin: 10/24/18 10:03 Dose: 5 mg Folic Acid (Folic Acid) 1 mg PO DAILY [facility] Last Admin: 10/24/18 10:03 Dose: 1 mg Glucagon (Glucagen Diagnostic Kit) 0 mg IM STAT PRN; Protocol PRN Reason: Hypoglycemia Protocol Dextrose (Dextrose 5% In Water 1000 Ml) 1,000 mls @ 0 mls/hr IV .Q0M PRN; Protocol PRN Reason: Hypoglycemia Protocol Insulin Aspart (Novolog) 0 unit SC ACHS [facility]; Protocol Last Admin: 10/24/18 22:31 Dose: Not Given Insulin Aspart (Novolog) 20 unit SC TIDAC [facility] Last Admin: 10/24/18 17:56 Dose: Not Given Insulin Glargine (Lantus) 70 unit SC [facility] Last Admin: 10/24/18 22:35 Dose: 70 units Latanoprost (Xalatan Opht) 0.05 ml OS [facility] Last Admin: 10/24/18 22:29 Dose: 0.05 ml Levetiracetam (Keppra) 500 mg PO BID [facility] Last Admin: 10/24/18 17:54 Dose: 500 mg Levothyroxine Sodium (Synthroid) 125 mcg PO DAILY@0630 [facility] Last Admin: 10/24/18 06:00 Dose: 125 mcg Losartan Potassium (Cozaar) 100 mg PO DAILY [facility] Last Admin: 10/24/18 10:03 Dose: 100 mg Magnesium Oxide (Mag-Ox) 400 mg PO DAILY [facility] Last Admin: 10/24/18 10:03 Dose: 400 mg Ondansetron HCl (Zofran Tab) 4 mg PO Q4 [facility] Last Admin: 10/25/18 00:31 Dose: Not Given Propranolol HCl (Inderal) 60 mg PO Q8H [facility] Last Admin: 10/24/18 22:29 Dose: Not Given - Labs Labs: 10/23/18 07:18 10/23/18 07:18 PT 12.7 SECONDS (9.7-12.2) H 10/19/18 23:56 INR 1.2 10/19/18 23:56 APTT 40 SECONDS (21-34) H 10/19/18 23:56 - Constitutional Appears: Well, No Acute Distress - Head Exam Head Exam: NORMAL INSPECTION - Eye Exam Eye Exam: Normal appearance Pupil Exam: NORMAL ACCOMODATION - ENT Exam ENT Exam: Normal Exam - Neck Exam Neck Exam: Normal Inspection - Respiratory Exam Respiratory Exam: Clear to Ausculation Bilateral, NORMAL BREATHING PATTERN - Cardiovascular Exam Cardiovascular Exam: REGULAR RHYTHM - GI/Abdominal Exam GI & Abdominal Exam: Soft, Normal Bowel Sounds - Rectal Exam Rectal Exam: Deferred - Exam Exam: NORMAL INSPECTION - Extremities Exam Extremities Exam: Normal Inspection - Back Exam Back Exam: CVA tenderness (L) - Neurological Exam Neurological Exam: Alert, Awake - Psychiatric Exam Psychiatric exam: Anxious - Skin Skin Exam: Dry, Intact, Normal Color, Warm Assessment and Plan (1) Syncope Assessment & Plan: From orthostatic hypotension and/or seizures. Status: Acute (2) Seizures Assessment & Plan: On Keppra. Status: Acute (3) Elevated d-dimer Assessment & Plan: Unknown etiology. Status: Acute (4) Uncontrolled insulin dependent diabetes mellitus Status: Acute (5) CKD (chronic kidney disease) Status: Acute (6) Orthostatic hypotension Status: Acute (7) Orthostatic hypotension Assessment & Plan: To continue to monitor BP, HR. Status: Acute
[2018-10-25] MEDS: Levothyroxine 125 MCG TAB PO SCH (06:36)
[2018-10-25] MEDS: (Novolog) Insulin Aspart, Recombinant 100 u/ml 10 ml vial SC SCH ×7 (07:25→21:55)
[2018-10-25 07:27] LABS: BASO % 0.6 % (0.0-2.0); EOS # 0.2 K/uL (0.0-0.7); EOS % 3.3 % (0.0-4.0); HEMOGLOBIN 15.1 g/dL (12.0-18.0); LYMPH # 2.1 K/uL (1.0-4.3); LYMPH % 32.5 % (20.0-40.0); MEAN CORPUSCULAR HEMOGLOBIN 32.3 pg (27.0-31.0); MEAN PLATELET VOLUME 8.5 fL (7.2-11.7); MONO # 0.5 K/uL (0.0-0.8); MONO % 8.5 % (0.0-10.0); NEUT # 3.5 K/uL (1.8-7.0); NEUT % 55.1 % (50.0-75.0); NRBC % 0.3 % (0.0-2.0); RBC 4.69 Mil/uL (4.40-5.90); RED CELL DISTRIBUTION WIDTH 12.9 % (11.5-14.5); WHITE BLOOD COUNT 6.4 K/uL (4.8-10.8)
[2018-10-25 07:41] LABS: ALB/GLOB RATIO 1.5 (1.0-2.1); ALBUMIN 4.1 g/dL (3.5-5.0); CALCIUM 9.3 mg/dl (8.6-10.4)
[2018-10-25] MEDS: Magnesium Oxide 400 mg Tab UD PO SCH (12:02)
[2018-10-25] MEDS: Enoxaparin 30 mg Syringe SC SCH (12:03)
[2018-10-25] MEDS: Latanoprost 2.5 ml Opht Soln OS SCH (21:45)
[2018-10-25] MEDS: (Lantus) Insulin Glargine, Recombinant SC SCH (21:46)
[2018-10-26] MEDS: Levothyroxine 125 MCG TAB PO SCH (05:40)
[2018-10-26] MEDS: (Novolog) Insulin Aspart, Recombinant 100 u/ml 10 ml vial SC SCH ×5 (07:34→17:57)
--- NOTE | 2018-10-26 08:17 | CP.PCM.PN ---
Subjective - Date & Time of Evaluation Date of Evaluation: 10/26/18 Time of Evaluation: 08:15 - Subjective Subjective: pt seen and examined says dizziness is a lot better no SOB no chest pain or palpitations noted that BP is high on inderal and midodrine ROS- as per HPI, other than that 10 point ROS negative Objective - Vital Signs/Intake and Output Vital Signs (last 24 hours): Temp Pulse Resp BP Pulse Ox 97.6 F 60 20 179/70 H 100 10/25/18 23:21 10/25/18 23:21 10/25/18 23:21 10/25/18 23:21 10/25/18 23:21 - Medications Medications: Current Medications Dextrose (Dextrose 50% Inj) 0 ml IV STAT PRN; Protocol PRN Reason: Hypoglycemia Protocol Dextrose (Glutose 15) 0 gm PO ONCE PRN; Protocol PRN Reason: Hypoglycemia Protocol Docusate Sodium (Colace) 100 mg PO BID PRN PRN Reason: Constipation Last Admin: 10/23/18 09:04 Dose: 100 mg Enoxaparin Sodium (Lovenox) 30 mg SC DAILY [facility] Last Admin: 10/25/18 12:03 Dose: 30 mg Famotidine (Pepcid) 20 mg PO DAILY [facility] Last Admin: 10/25/18 12:02 Dose: 20 mg Fenofibrate (Tricor) 48 mg PO DAILY [facility] Last Admin: 10/25/18 12:03 Dose: 48 mg Finasteride (Proscar) 5 mg PO DAILY [facility] Last Admin: 10/25/18 12:02 Dose: 5 mg Folic Acid (Folic Acid) 1 mg PO DAILY [facility] Last Admin: 10/25/18 12:02 Dose: 1 mg Glucagon (Glucagen Diagnostic Kit) 0 mg IM STAT PRN; Protocol PRN Reason: Hypoglycemia Protocol Dextrose (Dextrose 5% In Water 1000 Ml) 1,000 mls @ 0 mls/hr IV .Q0M PRN; Protocol PRN Reason: Hypoglycemia Protocol Insulin Aspart (Novolog) 0 unit SC ACHS [facility]; Protocol Last Admin: 10/25/18 21:55 Dose: Not Given Insulin Aspart (Novolog) 20 unit SC TIDAC [facility] Last Admin: 10/25/18 17:17 Dose: 20 unit Insulin Glargine (Lantus) 70 unit SC HS [facility] Last Admin: 02/15/19 21:46 Dose: 70 units Latanoprost (Xalatan Opht) 0.05 ml OS HS [facility] Last Admin: 10/25/18 21:45 Dose: 0.05 ml Levetiracetam (Keppra) 500 mg PO BID [facility] Last Admin: 10/25/18 17:21 Dose: 500 mg Levothyroxine Sodium (Synthroid) 125 mcg PO DAILY@0630 [facility] Last Admin: 10/26/18 05:40 Dose: 125 mcg Losartan Potassium (Cozaar) 100 mg PO DAILY [facility] Last Admin: 10/25/18 12:02 Dose: 100 mg Magnesium Oxide (Mag-Ox) 400 mg PO DAILY [facility] Last Admin: 10/25/18 12:02 Dose: 400 mg Midodrine (Proamatine) 5 mg PO TID [facility] Last Admin: 10/25/18 17:21 Dose: 5 mg Ondansetron HCl (Zofran Tab) 4 mg PO Q4 [facility] Last Admin: 10/26/18 05:01 Dose: Not Given Propranolol HCl (Inderal) 40 mg PO Q8H [facility] Last Admin: 10/26/18 05:03 Dose: Not Given - Labs Labs: 10/25/18 07:03 10/25/18 07:03 PT 12.7 SECONDS (9.7-12.2) H 10/19/18 23:56 INR 1.2 10/19/18 23:56 APTT 40 SECONDS (21-34) H 10/19/18 23:56 - Constitutional Appears: Well, Non-toxic - Head Exam Head Exam: ATRAUMATIC, NORMOCEPHALIC - Eye Exam Eye Exam: EOMI, PERRL - ENT Exam ENT Exam: Mucous Membranes Moist - Neck Exam Neck Exam: Full ROM - Respiratory Exam Respiratory Exam: Clear to Ausculation Bilateral. absent: Rhonchi, Wheezes - Cardiovascular Exam Cardiovascular Exam: Clicks, REGULAR RHYTHM, +S1, +S2 - GI/Abdominal Exam GI & Abdominal Exam: Soft. absent: Distended, Tenderness - Extremities Exam Extremities Exam: Full ROM. absent: Pedal Edema - Neurological Exam Neurological Exam: Alert, Awake, Oriented x3 - Psychiatric Exam Psychiatric exam: Normal Affect, Normal Mood - Skin Skin Exam: Normal Color, Warm Assessment and Plan (1) CKD (chronic kidney disease) stage 3, GFR 30-59 ml/min Status: Acute (2) HTN (hypertension) Status: Acute (3) Hypothyroidism Status: Acute (4) Orthostatic hypotension Status: Acute (5) Syncope Status: Acute (6) Uncontrolled insulin dependent diabetes mellitus Status: Acute - Assessment and Plan (Free Text) Plan: dizziness related to orthostasis cut back on dose of inderal due to bradycardia stop midodrine advised pt to avoid sudden change in position recheck orthostasis
[2018-10-26] MEDS: Enoxaparin 30 mg Syringe SC SCH (09:10)
[2018-10-26] MEDS: Magnesium Oxide 400 mg Tab UD PO SCH (09:10)
[2018-10-26 17:31] VITALS: BP 167/70; PULSE 62; TEMP 97.6; O2SAT 97
--- NOTE | 2018-10-30 09:33 | CP.PCM.DIS ---
Provider - Provider Date of Admission: 10/20/18 15:36 Attending physician: Cory Fagan MD Primary care physician: Cory Fagan M.D. Consults: 10/20/18 08:59 Neurology Consult Routine Comment: syncope Consulting Provider: Tan León Consulting Physician: Tan León Reason for Consult: syncope 10/23/18 21:36 Physician Consult Routine Comment: Consulting Provider: Bel Holman Consulting Physician: Bel Holman Reason for Consult: BPH. Orthostatic hypotension. Can we d/c Rapa[facility] ? Dr An ( Nephrology) for a stage 3 CKD. Time Spent in preparation of Discharge (in minutes): 45 Diagnosis - Discharge Diagnosis (1) Syncope Status: Acute (2) Seizures Status: Acute (3) Elevated d-dimer Status: Acute (4) Uncontrolled insulin dependent diabetes mellitus Status: Acute (5) CKD (chronic kidney disease) Status: Acute (6) Orthostatic hypotension Status: Acute (7) HTN (hypertension) Status: Acute Hospital Course - Lab Results Lab Results: Micro Results 10/20/18 11:36 Urine,Clean Catch Urine Culture - Final No Growth (<1,000 CFU/ML) Most Recent Lab Values WBC 6.4 K/uL (4.8-10.8) 10/25/18 07:03 RBC 4.69 Mil/uL (4.40-5.90) 10/25/18 07:03 Hgb 15.1 g/dL (12.0-18.0) 10/25/18 07:03 Hct 44.5 % (35.0-51.0) 10/25/18 07:03 MCV 95.0 fL (80.0-94.0) H 10/25/18 07:03 MCH 32.3 pg (27.0-31.0) H 10/25/18 07:03 MCHC 34.0 g/dL (33.0-37.0) 10/25/18 07:03 RDW 12.9 % (11.5-14.5) 10/25/18 07:03 Plt Count 183 K/uL (130-400) 10/25/18 07:03 MPV 8.5 fL (7.2-11.7) 10/25/18 07:03 Neut % (Auto) 55.1 % (50.0-75.0) 10/25/18 07:03 Lymph % (Auto) 32.5 % (20.0-40.0) 10/25/18 07:03 [place] % (Auto) 8.5 % (0.0-10.0) 10/25/18 07:03 Eos % (Auto) 3.3 % (0.0-4.0) 10/25/18 07:03 Baso % (Auto) 0.6 % (0.0-2.0) 10/25/18 07:03 Neut # (Auto) 3.5 K/uL (1.8-7.0) 10/25/18 07:03 Lymph # (Auto) 2.1 K/uL (1.0-4.3) 10/25/18 07:03 [place] # (Auto) 0.5 K/uL (0.0-0.8) 10/25/18 07:03 Eos # (Auto) 0.2 K/uL (0.0-0.7) 10/25/18 07:03 Baso # (Auto) 0.0 K/uL (0.0-0.2) 10/25/18 07:03 PT 12.7 SECONDS (9.7-12.2) H 10/19/18 23:56 INR 1.2 10/19/18 23:56 APTT 40 SECONDS (21-34) H 10/19/18 23:56 D-Dimer, Quantitative 1980 ng/mlDDU (0-243) H 10/20/18 08:03 Sodium 136 mmol/L (132-148) 10/25/18 07:03 Potassium 3.9 mmol/L (3.6-5.2) 10/25/18 07:03 Chloride 97 mmol/L (98-107) L 10/25/18 07:03 Carbon Dioxide 26 mmol/L (22-30) 10/25/18 07:03 Anion Gap 17 (10-20) 10/25/18 07:03 BUN 29 mg/dL (9-20) H 10/25/18 07:03 Creatinine 1.7 mg/dL (0.8-1.5) H 10/25/18 07:03 Est GFR ( Amer) 47 10/25/18 07:03 Est GFR (Non-Af Amer) 39 10/25/18 07:03 POC Glucose (mg/dL) 127 mg/dL (65-110) H 10/26/18 16:32 Random Glucose 141 mg/dL (75-110) H D 10/25/18 07:03 Calcium 9.3 mg/dl (8.6-10.4) 10/25/18 07:03 Ionized Calcium 4.2 mg/dL (4.80-5.60) L 10/20/18 13:30 Phosphorus 3.9 mg/dL (2.5-4.5) 10/22/18 07:41 Magnesium 2.1 mg/dL (1.6-2.3) 10/22/18 07:41 Total Bilirubin 0.6 mg/dL (0.2-1.3) 10/25/18 07:03 AST 97 U/L (17-59) H D 10/25/18 07:03 ALT 102 U/L (21-72) H D 10/25/18 07:03 Alkaline Phosphatase 54 U/L (38-126) 10/25/18 07:03 Troponin I < 0.0120 ng/mL (0.00-0.120) 10/20/18 08:00 Total Protein 6.9 g/dL (6.3-8.3) 10/25/18 07:03 Albumin 4.1 g/dL (3.5-5.0) 10/25/18 07:03 Globulin 2.8 gm/dL (2.2-3.9) 10/25/18 07:03 Albumin/Globulin Ratio 1.5 (1.0-2.1) 10/25/18 07:03 Vitamin B12 804 pg/mL (239-931) 10/20/18 10:23 Folate > 20.0 ng/mL 10/20/18 10:23 Free T4 2.10 ng/dL (0.78-2.19) 10/20/18 13:30 Total T3 1.08 nmol/L (1.49-2.60) L 10/20/18 08:00 TSH 3rd Generation 0.18 mIU/L (0.46-4.68) L 10/20/18 13:30 Prolactin 28.8 ng/mL (3.7-17.9) H 10/20/18 08:03 Urine Color Yellow (YELLOW) 10/20/18 00:46 Urine Clarity Clear (Clear) 10/20/18 00:46 Urine pH 6.0 (5.0-8.0) 10/20/18 00:46 Ur Specific [place] 1.013 (1.003-1.030) 10/20/18 00:46 Urine Protein 2+ mg/dL (NEGATIVE) H 10/20/18 00:46 Urine Glucose (UA) 1+ mg/dL (Normal) H 10/20/18 00:46 Urine Ketones Negative mg/dL (NEGATIVE) 10/20/18 00:46 Urine Blood Negative (NEGATIVE) 10/20/18 00:46 Urine Nitrate Negative (NEGATIVE) 10/20/18 00:46 Urine Bilirubin Negative (NEGATIVE) 10/20/18 00:46 Urine Urobilinogen Normal mg/dL (0.2-1.0) 10/20/18 00:46 Ur Leukocyte Esterase Neg Nuris/uL (Negative) 10/20/18 00:46 Urine WBC (Auto) 1 /hpf (0-5) 10/20/18 00:46 Urine RBC (Auto) < 1 /hpf (0-3) 10/20/18 00:46 Urine Bacteria Rare (<OCC) 10/20/18 00:46 - Hospital Course Hospital Course: This is an 82 yo male who was witnessed to pass out at home, and to have seizures-like activities for a few seconds. The patient spontaneously regained consciousness after a few seconds, without any confusion, weakness, urine or fecal incontinence. Known to have an IDDM, a hypertension, a stage 3 CKD, a fatty liver with elevated liver enzymes, a BPH, he has been experiencing lightheadedness for the past few months. He was hospitalized a few days ago at [facility] for a severe dizziness and was released on Meclizine 25 mg PO TID after a normal brain MRI. On admission, the patient's BP: 156/68 HR: 68 RR: 20 Pulse oxymetry: 96% on room air. D-Dimer: 1,980 TNI< 0.012 TSH: 0.18 AST: 88 ALT: 100Ca ionized: 4.2 Glucose: 262 Na+:133 K+: 3.7 BUN: 38 creatinine: 1.8 . ECG: RSR, LVH CXR: no acute infiltrate. CT scan of the head: Mild diffuse brain atrophy. The patient underwent a lung V/Q scan which showed low probability for pulmonary embolism. A carotid duplex scan did not reveal any significanr stenosis, a brain MRI revealed mild microangiopathic change and mild global parenchymal volume loss. An abdominal US revealed mild hepatomegaly, fatty infiltrate, a single cyst of the right liver lobe, and gallstones without cholecystitis. An echocardiogram showed mild LVH with a normal systolic wall motion and a grade I diastolic dysfunctiion, mild aortic insufficiency. An EEG revealed polyphasic sharp waves activities at the left frontal area, suggestive of epilepsy. The patient's BP: 160/80 supine, 145/70 sitting and 128/60 standing. A diagnosis of orthostatic hypotension, possible seizures was made. The patient was started on Keppra 500 mg PO BID by Dr León ( Neurology). His Amlodipine and Flomax were discontinued. He was started on Inderal 60 mg PO TID, subsequently decreased to 20 mg PO TID. He was aslo started on Midodrine 50 mg PO TID, and continued on Meclizine 25 mg PO TID. Hydrochlorothiazide was also discontinued. He was prescribed thigh high anti-embolic stockings, advised to increase his PO fluid intake. Lantus and Novolog dosages were adjusted to control his blood glucose. The patient's symtoms improved gradually. He was able to ambulate with a walker without lightleadedness. He was discharged to a subacute rehabilitation Center on 10/26/2018 for continued physical therapy. - Date & Time of H&P Date of H&P: 10/30/18 Time of H&P: 09:25 Discharge Exam - Head Exam Head Exam: ATRAUMATIC, NORMOCEPHALIC - Eye Exam Eye Exam: Normal appearance Pupil Exam: NORMAL ACCOMODATION - ENT Exam ENT Exam: Normal Exam - Neck Exam Neck exam: Normal Inspection - Respiratory Exam Respiratory Exam: Clear to PA & Lateral, NORMAL BREATHING PATTERN - GI/Abdominal Exam GI & Abdominal Exam: Normal Bowel Sounds, Soft - Rectal Exam Rectal Exam: Deferred - Exam Exam: NORMAL INSPECTION - Extremities Exam Extremities exam: normal inspection - Back Exam Back exam: NORMAL INSPECTION - Neurological Exam Neurological exam: Alert, CN II-XII Intact, Oriented x3, Reflexes Normal - Psychiatric Exam Psychiatric exam: Anxious - Skin Skin Exam: Dry, Intact, Normal Color, Pallor, Warm Discharge Plan - Follow Up Plan Condition: STABLE Disposition: REHAB FACILITY/REHAB UNIT Instructions: High Blood Pressure (DC), Chronic Kidney Disease (DC), Syncope (DC) Referrals: Tan León MD [Staff Provider] - Cory Fagan MD [Staff Provider] - Clinical Quality Measures - Date & Time of Discharge Summary Date of Discharge Summary: 10/30/18 Time of Discharge Summary: 10:10
== END 2018-10-26 18:00 | DRG 312 ==
LOC: C.ER 22:48 → C.6T 10-20 00:45 → C.5S 10-20 01:19 → OBSVTOIN 10-20 15:36
PROVIDERS: ADMIT Internal Medicine Cardiovascular Disease; ATTEND Internal Medicine Cardiovascular Disease
DX: I95.1 Orthostatic hypotension (principal); E87.1 Hypo-osmolality and hyponatremia; E11.42 Type 2 diabetes mellitus with diabetic polyneuropathy; E11.22 Type 2 diabetes mellitus with diabetic chronic kidney disease; E11.51 Type 2 diabetes mellitus with diabetic peripheral angiopathy without gangrene; E11.65 Type 2 diabetes mellitus with hyperglycemia; E78.5 Hyperlipidemia, unspecified; E89.0 Postprocedural hypothyroidism; H35.30 Unspecified macular degeneration; I12.9 Hypertensive chronic kidney disease with stage 1 through stage 4 chronic kidney disease, or unspecified chronic kidney disease; N40.0 Benign prostatic hyperplasia without lower urinary tract symptoms; J44.9 Chronic obstructive pulmonary disease, unspecified; N18.3 Chronic kidney disease, stage 3 (moderate); R56.9 Unspecified convulsions; R79.1 Abnormal coagulation profile; Z79.4 Long term (current) use of insulin; Z79.899 Other long term (current) drug therapy; Z87.891 Personal history of nicotine dependence; K76.0 Fatty (change of) liver, not elsewhere classified; K76.89 Other specified diseases of liver; K80.20 Calculus of gallbladder without cholecystitis without obstruction

== ENCOUNTER 2018-11-15 03:41 | Inpatient (IN) | payer MEDICARE ==
[2018-11-15 04:04] VITALS: BMI 25.0
--- NOTE | 2018-11-15 04:12 | C.PDOC ---
History Of Present Illness 82 year old male presents to the ER for dizziness and syncopal episode at home while going to the bathroom. Denies seizure activity, post ictal state, chest pain or palpitations. Chief Complaint (Nursing): Altered Mental Status History Per: Patient History/Exam Limitations: None Onset/Duration Of Symptoms: Hrs Usual Baseline: Alert Oriented Exacerbating Factor(s): Unknown Speech Is: Normal Recent travel outside of the [place]: No Associated Symptoms: Syncope. denies: Chest Pain, Seizure, Other (Palpitations) Past Medical History Reviewed: Historical Data, Nursing Documentation, Vital Signs - Medical History PMH: Colonic Polyps, COPD, HTN, Hypothyroidism, Chronic Kidney Disease, Seizures Denies: Fractures Surgical History: Endoscopy Family History: States: Unknown Family Hx - Social History Hx Alcohol Use: No Hx Substance Use: No - Immunization History Hx Tetanus Toxoid Vaccination: No Hx Influenza Vaccination: Yes Hx Pneumococcal Vaccination: Yes Review Of Systems Constitutional: Negative for: Fever, Chills Eyes: Negative for: Vision Change Cardiovascular: Negative for: Chest Pain, Palpitations Respiratory: Negative for: Cough, Shortness of Breath Gastrointestinal: Negative for: Nausea, Vomiting Musculoskeletal: Negative for: Neck Pain Skin: Negative for: Rash, Lesions, Jaundice, Bruising Neurological: Positive for: Other (Syncope). Negative for: Weakness, Numbness, Change in Speech, Seizures Psych: Negative for: Anxiety, Depression Physical Exam - Physical Exam Appears: Non-toxic, Other (Alert conscious) Skin: Normal Color, Warm, Dry Head: Atraumatic, Normacephalic Eye(s): bilateral: Normal Inspection, PERRL, EOMI Nose: Normal Oral Mucosa: Moist Throat: Normal Neck: Normal Chest: Symmetrical, No Tenderness Cardiovascular: Rhythm Regular, No Murmur, Other (Bradycardic) Respiratory: Normal Breath Sounds, No Rales, No Rhonchi, No Wheezing Gastrointestinal/Abdominal: Soft, No Tenderness Back: Normal Inspection Extremity: Bilateral: Atraumatic Neurological/Psych: Oriented x3, Normal Speech, Other (No focal deficit) Gait: Unable To Assess Other Neurological Findings: No Facial Palsy, No Tongue Deviation ED Course And Treatment - Laboratory Results Result Diagrams: 11/15/18 04:20 11/15/18 04:20 ECG: Interpreted By Me, Viewed By Me ECG Rhythm: Sinus Bradycardia ECG Interpretation: No Acute Changes, Abnormal Interpretation Of ECG: Sinus bradycardia, poor R wave progression V1 to V2, no acute changes, no significant change from old tracings of 10/19/2018 Rate From EC Progress Note: CT head, CT cervical spine, blood work, and CXR ordered. IV fluids administered. NIHSS Stroke Scale - Date/Time Evaluation Performed Date Performed: 11/15/18 Time Performed: 04:10 When Was NIHSS Performed: Baseline - How Severe is the [place] Level of Consciousness: 0=Alert LOC to Questions: 0=Both comments correct LOC to commands: 0=Obeys both correctly Best Gaze: 0=Normal Visual: 0=No visual loss Facial: 0=Normal Motor Arm - Left: 0=No drift Motor Arm - Right: 0=No drift Motor Leg - Left: 0=No drift Motor Leg - Right: 0=No drift Limb Ataxia: 0=Absent Sensory: 0=Normal Best Language: 0=No aphasia Dysarthia: 0=Normal articulation Extinction & Inattention (Neglect): 0=Normal, no object Score: 0 Medical Decision Making Medical Decision Making: Patient had a syncopal episode with no neurologic findings or deficit, CT of brain showed no acute process. Patient to be admitted on telemetry for further evaluation. Disposition Discussed With : Cory Fagan Doctor Will See Patient In The: Hospital Counseled Patient/Family Regarding: Diagnosis - Disposition Disposition: HOSPITALIZED Disposition Time: 05:32 Condition: STABLE - Clinical Impression Clinical Impression: Syncope - Scribe Statement The provider has reviewed the documentation as recorded by the Scribmarisa Jimenez All medical record entries made by the Caioibmarisa were at my direction and personally dictated by me. I have reviewed the chart and agree that the record accurately reflects my personal performance of the history, physical exam, medical decision making, and the department course for this patient. I have also personally directed, reviewed, and agree with the discharge instructions and disposition.
[2018-11-15] MEDS ORDERED: Sodium Chloride 0.9% 1,000 ML IV ONE (04:17)
[2018-11-15 04:25] LABS: BASO % 0.4 % (0.0-2.0); EOS # 0.1 K/uL (0.0-0.7); EOS % 0.7 % (0.0-4.0); HEMOGLOBIN 16.3 g/dL (12.0-18.0); LYMPH # 1.7 K/uL (1.0-4.3); MEAN CELL VOLUME 93.5 fL (80.0-94.0); MEAN CORPUSCULAR HEMOGLOBIN 31.8 pg (27.0-31.0); MEAN PLATELET VOLUME 7.9 fL (7.2-11.7); MONO # 0.6 K/uL (0.0-0.8); NEUT # 6.1 K/uL (1.8-7.0); NEUT % 71.9 % (50.0-75.0); RBC 5.12 Mil/uL (4.40-5.90); RED CELL DISTRIBUTION WIDTH 13.2 % (11.5-14.5); WHITE BLOOD COUNT 8.4 K/uL (4.8-10.8)
[2018-11-15 04:35] LABS: INR 1.1; PROTHROMBIN TIME 11.5 SECONDS (9.7-12.2)
[2018-11-15 04:55] LABS: TROPONIN I 0.038 ng/mL (0.00-0.120)
[2018-11-15 05:27] LABS: CALCIUM 9.6 mg/dl (8.6-10.4)
[2018-11-15 05:28] LABS: ALB/GLOB RATIO 1.5 (1.0-2.1); ALBUMIN 4.3 g/dL (3.5-5.0)
[2018-11-15] MEDS ORDERED: Potassium Chloride 20 mEq ER Tab PO STA (05:31)
[2018-11-15 06:49] VITALS: RESP 20
[2018-11-15] MEDS ORDERED: (Novolog) Insulin Aspart, Recombinant 100 u/ml 10 ml vial SC SCH (07:30)
[2018-11-15] MEDS: Levothyroxine 150 MCG TAB PO SCH (08:04)
[2018-11-15] MEDS: (Novolog) Insulin Aspart, Recombinant 100 u/ml 10 ml vial SC SCH ×7 (08:07→22:16)
--- NOTE | 2018-11-15 08:11 | CT ---
Date of service: 11/15/2018 PROCEDURE: CT HEAD WITHOUT CONTRAST. HISTORY: fall/syncopal episode COMPARISON: None available. TECHNIQUE: Axial computed tomography images were obtained through the head/brain without intravenous contrast. Radiation dose: Total exam DLP = 1212.94 mGy-cm. This CT exam was performed using one or more of the following dose reduction techniques: Automated exposure control, adjustment of the mA and/or kV according to patient size, and/or use of iterative reconstruction technique. FINDINGS: HEMORRHAGE: No intracranial hemorrhage. BRAIN: No mass effect or edema. Scattered focal lucencies in the subcortical and periventricular white matter suggestive for chronic microvascular ischemic change. Diffuse generalized parenchymal atrophy. Punctate right basal ganglia lacunar infarct. Right basal ganglia calcification. VENTRICLES: Unremarkable. No hydrocephalus. CALVARIUM: Unremarkable. PARANASAL SINUSES: Mild mucosal thickening of the bilateral maxillary sinuses, sphenoid sinus, and ethmoid air cells. MASTOID AIR CELLS: Unremarkable as visualized. No inflammatory changes. OTHER FINDINGS: Intracranial arterial calcifications. IMPRESSION: No acute intracranial abnormality. Chronic microvascular ischemic changes. Diffuse generalized parenchymal atrophy. Mild sinus mucosal disease. This includes new secretions in the right sphenoid sinus which may indicate an acute sinusitis. Clinical correlation. If symptoms persists, consider correlation with MRI. A preliminary report was generated at 5:13 a.m. on 11/15/[address] Milton Ramos from [facility].
[2018-11-15] MEDS ORDERED: Pantoprazole 40 mg EC Tab PO SCH ×2 (08:15→10:00)
--- NOTE | 2018-11-15 09:44 | CT ---
Date of service: 11/15/2018 PROCEDURE: CT Cervical Spine without contrast HISTORY: fall/syncopal episode COMPARISON: None available. TECHNIQUE: Axial computed tomography images were obtained of the cervical spine without the use of intravenous contrast. Coronal and sagittal reformatted images were created and reviewed. Radiation dose: Total exam DLP = 434.81 mGy-cm. This CT exam was performed using one or more of the following dose reduction techniques: Automated exposure control, adjustment of the mA and/or kV according to patient size, and/or use of iterative reconstruction technique. FINDINGS: VERTEBRAE: The vertebral bodies are maintained in height. There is grade 1 anterolisthesis at C7-T1, likely degenerative in origin. Normal alignment is maintained elsewhere. There is mild straightening of the normal lordotic curvature of the cervical spine indicating possible muscular spasm. The atlantoaxial articulation and odontoid process are intact. DISCS/SPINAL CANAL/NEURAL FORAMINA: There is narrowing of the C5-6 and C6-7 intervertebral disc spaces associated with osteophyte formation consistent with degenerative disc disease. The remaining intervertebral disc spaces are maintained in height. There is [id number] spinal stenosis at the C6-7 intervertebral disc space level as a result of degenerative disc disease. PARASPINAL SOFT TISSUES: Unremarkable. OTHER FINDINGS: None. IMPRESSION: No fracture. Grade 1 anterolisthesis C7-T1 likely degenerative. Possible muscular spasm. Degenerative disc disease C5-6 and C6-7. No other significant abnormality. The preliminary findings for this examination were reported by [facility] at 5:21 a.m. on 11/15/2018. There is concurrence of this report with the preliminary findings.
[2018-11-15] MEDS ORDERED: Levothyroxine 150 MCG TAB PO SCH (10:00)
[2018-11-15] MEDS ORDERED: MAGNESIUM 250 MG PO SCH (10:00)
[2018-11-15] MEDS ORDERED: CHOLECALCIFEROL PO SCH (10:00)
--- NOTE | 2018-11-15 10:18 | RAD ---
Date of service: 11/15/2018 PROCEDURE: CHEST RADIOGRAPH, 1 VIEW HISTORY: Syncope COMPARISON: 10/19/2018. FINDINGS: LUNGS: The lungs are well inflated and clear. PLEURA: No pneumothorax or pleural effusion. CARDIOVASCULAR: The heart is normal in size. There are aortic atherosclerotic calcifications present. OSSEOUS STRUCTURES: Within normal limits for the patient's age. VISUALIZED UPPER ABDOMEN: Normal. OTHER FINDINGS: None. IMPRESSION: No active pulmonary disease.
[2018-11-15 12:50] LABS: FREE T4 1.99 ng/dL (0.78-2.19)
[2018-11-15] MEDS ORDERED: Ergocalciferol 50,000 Intl Units Cap PO SCH (13:45)
[2018-11-15] MEDS ORDERED: (Lantus) Insulin Glargine, Recombinant SC SCH (22:00)
[2018-11-15] MEDS ORDERED: Latanoprost 2.5 ml Opht Soln OS SCH (22:00)
--- NOTE | 2018-11-15 23:54 | CP.PCM.HP ---
History of Present Illness - History of Present Illness History of Present Illness: 82 years old male, a retired [employer] was found by his son lying on the bathroom floor at home last night, conscious, but pale and diaphoretic. The patient stated that he was going to the bathroom, and did not know what happened. He denies any chest pain, any palpitation, any dizziness. There was fecal or urine incontinence. His blood glucose by [facility] was OK. He was recently hospitalized for syncopal episodes, was found to have an orthostatic hypotension, and was seen seizing by his family member. EEG suggested seizures disorders, He was put on Midodrine, Keppra, Inderal. Hydrochlorothiazide, Flomax, Amlodipine were discontinued. 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 Patient is known to have an IDDM, a hypertension, a hypothyroidism, a hypercholesterolemia, a BPH, a stage 3 CKD. In the ED, head CT scan, neck CT scan did not show any acute pathology. The ECG was normal. His BP was elevated. Amlodipine was restarted to control his BP and Midodrine was discontinued. Present on Admission - Present on Admission Any Indicators Present on Admission: No Review of Systems - Neurological Neurological: Syncope Past Patient History - Infectious Disease Hx of Infectious Diseases: None - Tetanus Immunizations Tetanus Immunization: Unknown - Past Medical History & Family History Past Medical History?: Yes - Past Social History Smoking Status: Never Smoked Alcohol: None Drugs: Denies Home Situation {Lives}: With Family Domestic Violence: Negative - CARDIAC Hx Cardiac Disorders: Yes Hx Hypertension: Yes - PULMONARY Hx Chronic Obstructive Pulmonary Disease (COPD): Yes - NEUROLOGICAL Hx Seizures: Yes - HEENT Hx HEENT Problems: Yes Hx Macular Degeneration: Yes (left eye) - RENAL Hx Chronic Kidney Disease: Yes - ENDOCRINE/METABOLIC Hx Diabetes Mellitus Type 2: Yes Hx Hypothyroidism: Yes - HEMATOLOGICAL/ONCOLOGICAL Hx Blood Transfusions: No - MUSCULOSKELETAL/RHEUMATOLOGICAL Hx Arthritis: Yes - GASTROINTESTINAL Hx Gastrointestinal Disorders: Yes Hx Gall Bladder Disease: Yes Hx Hemorrhoids: Yes - GENITOURINARY/GYNECOLOGICAL Hx Genitourinary Disorders: Yes Hx Prostate Problems: Yes (BPH) - PSYCHIATRIC Hx Substance Use: No - SURGICAL HISTORY Hx Surgeries: Yes Hx Cataract Extraction: Yes Hx Thyroidectomy: Yes (TOTAL) - ANESTHESIA Hx Anesthesia: Yes Hx Anesthesia Reactions: No Hx Malignant Hyperthermia: No Meds Allergies/Adverse Reactions: Allergies Allergy/AdvReac Type Severity Reaction Status Date / Time sitagliptin phosphate Allergy Intermediate RASH Verified 11/15/18 04:04 [From Francisco] MICHELLE Allergy Intermediate RASH Uncoded 11/15/18 04:04 Physical Exam - Constitutional Appears: Well, No Acute Distress - Head Exam Head Exam: NORMOCEPHALIC - Eye Exam Eye Exam: Normal appearance Pupil Exam: NORMAL ACCOMODATION - ENT Exam ENT Exam: Normal Exam - Neck Exam Neck exam: Positive for: Normal Inspection - Respiratory Exam Respiratory Exam: Clear to Auscultation Bilateral, NORMAL BREATHING PATTERN - Cardiovascular Exam Cardiovascular Exam: REGULAR RHYTHM - GI/Abdominal Exam GI & Abdominal Exam: Normal Bowel Sounds, Soft - Rectal Exam Rectal Exam: Deferred - Extremities Exam Extremities exam: Positive for: normal inspection - Back Exam Back exam: NORMAL INSPECTION - Neurological Exam Neurological exam: Abnormal Gait, Alert, Oriented x3 - Psychiatric Exam Psychiatric exam: Anxious - Skin Skin Exam: Dry, Intact, Normal Color, Warm Results - Vital Signs Recent Vital Signs: Last Vital Signs Temp 97.7 F 11/15/18 15:00 Pulse 62 11/15/18 20:00 Resp 20 11/15/18 15:00 BP 179/76 H 11/15/18 15:00 Pulse Ox 99 11/15/18 15:00 - Labs Result Diagrams: 11/15/18 04:20 11/15/18 04:20 Labs: Laboratory Results - last 24 hr 11/15/18 11/15/18 11/15/18 04:20 04:20 04:20 WBC 8.4 RBC 5.12 Hgb 16.3 Hct 47.9 MCV 93.5 MCH 31.8 H MCHC 34.0 RDW 13.2 Plt Count 149 MPV 7.9 Neut % (Auto) 71.9 Lymph % (Auto) 20.0 [place] % (Auto) 7.0 Eos % (Auto) 0.7 Baso % (Auto) 0.4 Neut # (Auto) 6.1 Lymph # (Auto) 1.7 [place] # (Auto) 0.6 Eos # (Auto) 0.1 Baso # (Auto) 0.0 PT 11.5 INR 1.1 APTT 37 H Sodium 137 Potassium 3.5 L Chloride 101 Carbon Dioxide 30 Anion Gap 10 BUN 32 H Creatinine 1.4 Est GFR ( Amer) 59 Est GFR (Non-Af Amer) 49 POC Glucose (mg/dL) Random Glucose 103 D Hemoglobin A1c Calcium 9.6 Total Bilirubin 0.8 AST 69 H D ALT 74 H D Alkaline Phosphatase 63 Troponin I 0.0380 Total Protein 7.2 Albumin 4.3 Globulin 2.9 Albumin/Globulin Ratio 1.5 Free T4 TSH 3rd Generation 11/15/18 11/15/18 11/15/18 04:42 08:07 11:11 WBC RBC Hgb Hct MCV MCH MCHC RDW Plt Count MPV Neut % (Auto) Lymph % (Auto) [place] % (Auto) Eos % (Auto) Baso % (Auto) Neut # (Auto) Lymph # (Auto) [place] # (Auto) Eos # (Auto) Baso # (Auto) PT INR APTT Sodium Potassium Chloride Carbon Dioxide Anion Gap BUN Creatinine Est GFR ( Amer) Est GFR (Non-Af Amer) POC Glucose (mg/dL) 111 H 114 H 249 H Random Glucose Hemoglobin A1c Calcium Total Bilirubin AST ALT Alkaline Phosphatase Troponin I Total Protein Albumin Globulin Albumin/Globulin Ratio Free T4 TSH 3rd Generation 11/15/18 11/15/18 12:04 12:07 WBC RBC Hgb Hct MCV MCH MCHC RDW Plt Count MPV Neut % (Auto) Lymph % (Auto) [place] % (Auto) Eos % (Auto) Baso % (Auto) Neut # (Auto) Lymph # (Auto) [place] # (Auto) Eos # (Auto) Baso # (Auto) PT INR APTT Sodium Potassium Chloride Carbon Dioxide Anion Gap BUN Creatinine Est GFR ( Amer) Est GFR (Non-Af Amer) POC Glucose (mg/dL) Random Glucose Hemoglobin A1c 7.2 H Calcium Total Bilirubin AST ALT Alkaline Phosphatase Troponin I Total Protein Albumin Globulin Albumin/Globulin Ratio Free T4 1.99 TSH 3rd Generation 0.80 Assessment & Plan (1) Syncope Assessment and Plan: Etiology unclear. To repeat MRI of the head. To get a neurological evaluation. Status: Acute (2) HTN (hypertension) Assessment and Plan: Uncontrolled. Since there is no more orthostatic hypotension, will restart carefully Amlodipine. Status: Chronic (3) Uncontrolled insulin dependent diabetes mellitus Assessment and Plan: To continue Lantus and Novolog to control DM. Status: Chronic Decision To Admit - Pt Status Changed To: Hospital Disposition Of: Inpatient - Admit Certification Admit to Inpatient:: After my assessment, the patient will require hospitalization for at least two midnights. This is because of the severity of symptoms shown, intensity of services needed, and/or the medical risk in this patient being treated as an outpatient. - InPatient: Physician Admission Certification:: After my assessment, the patient requires hospitalization for at least 2 midnights. - . Bed Request Type: Telemetry Admitting Physician: Cory Fagan
[2018-11-16] MEDS ORDERED: Levothyroxine 150 MCG TAB PO SCH (06:00)
[2018-11-16] MEDS: Levothyroxine 150 MCG TAB PO SCH (06:05)
[2018-11-16] MEDS ORDERED: Pantoprazole 40 mg EC Tab PO SCH (08:00)
[2018-11-16] MEDS: (Novolog) Insulin Aspart, Recombinant 100 u/ml 10 ml vial SC SCH ×6 (08:11→18:01)
[2018-11-16] MEDS ORDERED: Magnesium Oxide 400 mg Tab UD PO SCH (10:00)
--- NOTE | 2018-11-16 13:35 | MRI ---
Date of service: 11/16/2018 PROCEDURE: MRI BRAIN WITHOUT CONTRAST HISTORY: syncope COMPARISON: Comparison is made to the previous study dated 10/21/2018 TECHNIQUE: Multiplanar, multisequence MR images of the brain were obtained without intravenous contrast enhancement. FINDINGS: HEMORRHAGE: None DWI: No evidence of an acute or early subacute infarction. BRAIN PARENCHYMA: No mass,mass effect or edema. Moderate atrophy and moderate chronic microvascular white matter ischemic disease are again noted. VENTRICLES: Dilated ventricle likely due to central atrophy. CRANIUM: Unremarkable. ORBITS: Grossly unremarkable. PARANASAL SINUSES/MASTOIDS: [id number]-[id number] sinuses mucosal thickening noted. VASCULAR SYSTEM: Skull base flow voids intact. OTHER FINDINGS: None. IMPRESSION: No evidence of acute infarction or intracranial hemorrhage. Volume loss and chronic microvascular ischemic disease. [id number] sinuses mucosal thickening.
--- NOTE | 2018-11-16 16:04 | CP.PCM.PN ---
Subjective - Date & Time of Evaluation Date of Evaluation: 11/16/18 Time of Evaluation: 15:57 - Subjective Subjective: Patient feels stronger. No headache or dizziness. BP: 150/80 Telemetry: RSR Head MRI: no acute pathology. Review of previous head MRA done at [facility] : severe artherosclerosis of the intra-cerebral arteries. Will start on Plavix Objective - Vital Signs/Intake and Output Vital Signs (last 24 hours): Temp Pulse Resp BP Pulse Ox 99.2 F 67 20 153/69 H 97 11/16/18 07:00 11/16/18 08:00 11/16/18 07:00 11/16/18 07:00 11/16/18 07:00 - Medications Medications: Current Medications Amlodipine Besylate (Norvasc) 5 mg PO DAILY [facility] Last Admin: 11/16/18 09:59 Dose: 5 mg Clopidogrel Bisulfate (Plavix) 75 mg PO DAILY [facility] Docusate Sodium (Colace) 100 mg PO BID PRN PRN Reason: Constipation Last Admin: 11/15/18 08:19 Dose: 100 mg Ergocalciferol (Drisdol 50,000 Intl Units Cap) 1 cap PO Q7D [facility] Last Admin: 11/15/18 13:43 Dose: 1 cap Famotidine (Pepcid) 20 mg PO BID [facility] Fenofibrate (Tricor) 48 mg PO QPM [facility] Last Admin: 11/15/18 18:01 Dose: 48 mg Finasteride (Proscar) 5 mg PO DAILY [facility] Last Admin: 11/16/18 10:03 Dose: 5 mg Folic Acid (Folic Acid) 1 mg PO DAILY [facility] Last Admin: 11/16/18 09:59 Dose: 1 mg Insulin Aspart (Novolog) 0 unit SC ACHS [facility]; Protocol Last Admin: 11/16/18 12:36 Dose: 2 u Insulin Aspart (Novolog) 20 unit SC TIDAC [facility] Last Admin: 11/16/18 12:36 Dose: 20 u Insulin Glargine (Lantus) 65 unit SC HS [facility] Last Admin: 11/15/18 22:27 Dose: 65 units Latanoprost (Xalatan Opht) 0.05 ml OS HS [facility] Last Admin: 11/15/18 22:28 Dose: 0.05 ml Levetiracetam (Keppra) 500 mg PO BID [facility] Last Admin: 11/16/18 09:59 Dose: 500 mg Levothyroxine Sodium (Synthroid) 150 mcg PO 0630 [facility] Last Admin: 11/16/18 06:05 Dose: 150 mcg Losartan Potassium (Cozaar) 100 mg PO DAILY [facility] Last Admin: 11/16/18 09:59 Dose: 100 mg Magnesium Oxide (Mag-Ox) 400 mg PO DAILY [facility] Last Admin: 11/16/18 09:58 Dose: 400 mg Midodrine (Proamatine) 5 mg PO TID [facility] Last Admin: 11/16/18 14:33 Dose: Not Given Pneumococcal Polyvalent Vaccine (Pneumovax 23 Vaccine) 0.5 ml IM .ONCE ONE Stop: 11/17/18 10:01 Propranolol HCl (Inderal) 20 mg PO Q8 [facility] Last Admin: 11/16/18 14:33 Dose: 20 mg - Labs Labs: 11/15/18 04:20 11/15/18 04:20 PT 11.5 SECONDS (9.7-12.2) 11/15/18 04:20 INR 1.1 11/15/18 04:20 APTT 37 SECONDS (21-34) H 11/15/18 04:20 - Constitutional Appears: Well, No Acute Distress - Head Exam Head Exam: NORMAL INSPECTION - Eye Exam Eye Exam: Normal appearance - ENT Exam ENT Exam: Normal Exam - Neck Exam Neck Exam: Normal Inspection - Respiratory Exam Respiratory Exam: Clear to Ausculation Bilateral, NORMAL BREATHING PATTERN - Cardiovascular Exam Cardiovascular Exam: REGULAR RHYTHM - GI/Abdominal Exam GI & Abdominal Exam: Soft, Normal Bowel Sounds - Rectal Exam Rectal Exam: Deferred - Extremities Exam Extremities Exam: Normal Inspection - Back Exam Back Exam: NORMAL INSPECTION - Neurological Exam Neurological Exam: Alert, Awake, Oriented x3 - Psychiatric Exam Psychiatric exam: Anxious, Normal Mood - Skin Skin Exam: Dry, Intact, Normal Color, Warm Assessment and Plan (1) Syncope Assessment & Plan: Head MRI unremarkable today. Status: Acute (2) HTN (hypertension) Assessment & Plan: Better controlled today. To continue same meds. Status: Chronic (3) Uncontrolled insulin dependent diabetes mellitus Assessment & Plan: HgbA1C: 7.2. Status: Chronic
--- NOTE | 2018-11-16 16:41 | CARD ---
APPROVED REPORT Date of service: 11/15/2018 EKG Measurement Heart [id number] <Conclusion> Sinus bradycardia Septal infarct, age undetermined ST & T wave abnormality, consider lateral ischemia Abnormal ECG
[2018-11-16 16:42] VITALS: BP 183/72; PULSE 61; TEMP 97.9; O2SAT 100
[2018-11-17] MEDS ORDERED: Pneumococcal 23-Valent Vaccine IM ONE (10:00)
--- NOTE | 2018-11-18 10:21 | CP.PCM.DIS ---
Provider - Provider Date of Admission: 11/15/18 05:36 Attending physician: Cory Fagan MD Primary care physician: Cory Fagan M.D. Consults: 11/15/18 07:44 Neurology Consult Routine Comment: Consulting Provider: Tan León Consulting Physician: Tan León Reason for Consult: syncope 11/15/18 13:37 Social Work Referral Routine Comment: MAY NEED HELP AT HOME Physician Instructions: Reason For Exam: MAY NEED HELP AT HOME Time Spent in preparation of Discharge (in minutes): 30 Diagnosis - Discharge Diagnosis (1) Syncope Status: Acute (2) HTN (hypertension) Status: Chronic (3) Uncontrolled insulin dependent diabetes mellitus Status: Chronic (4) Basilar artery insufficiency Status: Chronic Comment: To maintan systolic BP around 150 mmHg, to prevent dizziness which may lead to syncopy. Hospital Course - Lab Results Lab Results: Most Recent Lab Values WBC 8.4 K/uL (4.8-10.8) 11/15/18 04:20 RBC 5.12 Mil/uL (4.40-5.90) 11/15/18 04:20 Hgb 16.3 g/dL (12.0-18.0) 11/15/18 04:20 Hct 47.9 % (35.0-51.0) 11/15/18 04:20 MCV 93.5 fL (80.0-94.0) 11/15/18 04:20 MCH 31.8 pg (27.0-31.0) H 11/15/18 04:20 MCHC 34.0 g/dL (33.0-37.0) 11/15/18 04:20 RDW 13.2 % (11.5-14.5) 11/15/18 04:20 Plt Count 149 K/uL (130-400) 11/15/18 04:20 MPV 7.9 fL (7.2-11.7) 11/15/18 04:20 Neut % (Auto) 71.9 % (50.0-75.0) 11/15/18 04:20 Lymph % (Auto) 20.0 % (20.0-40.0) 11/15/18 04:20 Harper % (Auto) 7.0 % (0.0-10.0) 11/15/18 04:20 Eos % (Auto) 0.7 % (0.0-4.0) 11/15/18 04:20 Baso % (Auto) 0.4 % (0.0-2.0) 11/15/18 04:20 Neut # (Auto) 6.1 K/uL (1.8-7.0) 11/15/18 04:20 Lymph # (Auto) 1.7 K/uL (1.0-4.3) 11/15/18 04:20 Harper # (Auto) 0.6 K/uL (0.0-0.8) 11/15/18 04:20 Eos # (Auto) 0.1 K/uL (0.0-0.7) 11/15/18 04:20 Baso # (Auto) 0.0 K/uL (0.0-0.2) 11/15/18 04:20 PT 11.5 SECONDS (9.7-12.2) 11/15/18 04:20 INR 1.1 11/15/18 04:20 APTT 37 SECONDS (21-34) H 11/15/18 04:20 Sodium 137 mmol/L (132-148) 11/15/18 04:20 Potassium 3.5 mmol/L (3.6-5.2) L 11/15/18 04:20 Chloride 101 mmol/L (98-107) 11/15/18 04:20 Carbon Dioxide 30 mmol/L (22-30) 11/15/18 04:20 Anion Gap 10 (10-20) 11/15/18 04:20 BUN 32 mg/dL (9-20) H 11/15/18 04:20 Creatinine 1.4 mg/dL (0.8-1.5) 11/15/18 04:20 Est GFR ( Amer) 59 11/15/18 04:20 Est GFR (Non-Af Amer) 49 11/15/18 04:20 POC Glucose (mg/dL) 245 mg/dL (65-110) H 11/16/18 12:11 Random Glucose 103 mg/dL (75-110) D 11/15/18 04:20 Hemoglobin A1c 7.2 % (4.2-6.5) H 11/15/18 12:04 Calcium 9.6 mg/dl (8.6-10.4) 11/15/18 04:20 Total Bilirubin 0.8 mg/dL (0.2-1.3) 11/15/18 04:20 AST 69 U/L (17-59) H D 11/15/18 04:20 ALT 74 U/L (21-72) H D 11/15/18 04:20 Alkaline Phosphatase 63 U/L (38-126) 11/15/18 04:20 Troponin I 0.0380 ng/mL (0.00-0.120) 11/15/18 04:20 Total Protein 7.2 g/dL (6.3-8.3) 11/15/18 04:20 Albumin 4.3 g/dL (3.5-5.0) 11/15/18 04:20 Globulin 2.9 gm/dL (2.2-3.9) 11/15/18 04:20 Albumin/Globulin Ratio 1.5 (1.0-2.1) 11/15/18 04:20 Free T4 1.99 ng/dL (0.78-2.19) 11/15/18 12:07 TSH 3rd Generation 0.80 mIU/L (0.46-4.68) 11/15/18 12:07 - Hospital Course Hospital Course: 82 years old male was found lying on the floor of his bathromm by his son, concious but diaphoretic. Patient stated that he was going to the bathroom, and did not know what hapened. He denies any dizziness, any palpitation, any chest pain, any nausea, vomiting. There was no seizures activities, no urine or fecal incontinence. The blood glucose was normal. His BP was elevated. On admission, his ECG revealed a regular sinus rhythm, without any acute change. His CXR did not show any acute infiltrate. CT scan of the neck revealed degenerative disc disease. CT scan of the head showed diffuse parenchymal ischemic change. 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 BP standin/70 standin/70. REpeated BP during the day did not reveal any significant orthostatic hypotension. The patient's BP was controlled by incresing Losartan to 100 mg PO qd and adding Amlodipine 5 mg PO qd. 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 The patient's BP was stabilized. He remained asymtomatic. It was felt that the dizziness and syncopal episode are secondary to the arterial basilar insufficiency, and his systolic BP should be maintained at around 150 mmHg. He was discharged home on the same medications from this hospitalization. - Date & Time of H&P Date of H&P: 11/15/18 Discharge Exam - Head Exam Head Exam: NORMAL INSPECTION - Eye Exam Eye Exam: Normal appearance Pupil Exam: NORMAL ACCOMODATION - ENT Exam ENT Exam: Normal Exam - Neck Exam Neck exam: Normal Inspection - Respiratory Exam Respiratory Exam: Clear to PA & Lateral, UNREMARKABLE - Cardiovascular Exam Cardiovascular Exam: REGULAR RHYTHM - GI/Abdominal Exam GI & Abdominal Exam: Normal Bowel Sounds, Soft - Rectal Exam Rectal Exam: Deferred - Extremities Exam Extremities exam: normal inspection - Back Exam Back exam: NORMAL INSPECTION - Neurological Exam Neurological exam: Alert, CN II-XII Intact, Oriented x3 - Psychiatric Exam Psychiatric exam: Anxious - Skin Skin Exam: Dry, Intact, Normal Color, Warm Discharge Plan - Discharge Medications Prescriptions: Losartan [Cozaar] 100 mg PO DAILY 90 Days #90 tab amLODIPine [Norvasc] 5 mg PO DAILY 90 Days #90 tab Famotidine [Pepcid] 20 mg PO BID 30 Days #60 tab Clopidogrel [Plavix] 75 mg PO DAILY 90 Days #90 tab Fenofibrate [Tricor] 48 mg PO QPM 90 Days #90 tab - Follow Up Plan Condition: STABLE Disposition: HOME/ ROUTINE Instructions: Amlodipine, Fenofibrate and Derivatives, Going Home on Blood Thinners , Syncope (DC) Additional Instructions: FOLLOW UP WITH DR. FAGAN IN ONE WEEK. 11/23/18 Clinical Quality Measures - CQM - Heart Failure Will be discharged to: Home Follow Up Date (must be within 7 days from discharge): 11/25/18 Follow Up Time: 14:00 - Date & Time of Discharge Summary Date of Discharge Summary: 11/18/18 Time of Discharge Summary: 10:41
== END 2018-11-16 19:20 | disposition home or self-care (01) | DRG 69 ==
LOC: C.ER 03:41 → C.6T 05:36
PROVIDERS: ADMIT Internal Medicine Cardiovascular Disease; ATTEND Internal Medicine Cardiovascular Disease
DX: G45.0 Vertebro-basilar artery syndrome (principal); I10 Essential (primary) hypertension; E11.65 Type 2 diabetes mellitus with hyperglycemia; Z79.4 Long term (current) use of insulin; E11.22 Type 2 diabetes mellitus with diabetic chronic kidney disease; E78.00 Pure hypercholesterolemia, unspecified; N18.3 Chronic kidney disease, stage 3 (moderate); I12.9 Hypertensive chronic kidney disease with stage 1 through stage 4 chronic kidney disease, or unspecified chronic kidney disease; Z86.010 Personal history of colon polyps; J44.9 Chronic obstructive pulmonary disease, unspecified; N40.0 Benign prostatic hyperplasia without lower urinary tract symptoms; R32 Unspecified urinary incontinence

== ENCOUNTER 2018-12-31 18:24 | Outpatient (CLI) | payer MEDICARE | END 2018-12-31 18:25 | disposition home or self-care (01) | LOC: C.SLEEP 18:25 | DX: G47.33 Obstructive sleep apnea (adult) (pediatric) (principal) ==